=== PATIENT | male | born 1945 | race Caucasian/White ===

== ENCOUNTER → 2018-01-12 16:03 | Outpatient (CLI) | payer SELFPAY ==
--- NOTE | 2018-01-12 16:45 | RAD_ITS ---
STUDY: X-RAY - ORBITS REASON FOR EXAM: Male, 72 years old. This study is being performed as a clearance examination for exclusion of orbital metal, prior to the performance of an MRI examination. TECHNIQUE: 2 view(s) of the orbits were obtained. COMPARISON: None. FINDINGS: Normal bilateral orbits without a metallic orbital foreign body. Normal visualized facial bones. There is a leftward nasal spur. The visualized sinuses appear normal. The soft tissue structures are unremarkable. RAD/Orbits for Foreign Body IMPRESSION: No demonstrated metallic orbital foreign body. The patient is cleared for an MRI examination. Electronically Signed: Filomena Charles MD at 17:10 EDT Tel , Service support ,
--- NOTE | 2018-01-12 16:45 | MRI_ITS ---
STUDY: MRI LUMBAR SPINE WITHOUT CONTRAST REASON FOR EXAM: Male, 72 years old. Low back pain radiating to the lower extremities TECHNIQUE: Standardized fat and water weighted pulse sequences were obtained in the sagittal and axial planes. COMPARISON: None FINDINGS: T12-L1: Normal endplates. Normal disc height, hydration and morphology. Normal bilateral facet joints. Normal central canal and bilateral lateral recesses. Normal bilateral intervertebral neural foramina. Normal lumbar lordosis. There is no substantial scoliosis. Normal conus medullaris that terminates at T12-L1 L1-2: Normal endplates. Normal disc height, desiccation and minor annular bulge.. Normal bilateral facet joints. Normal central canal and bilateral lateral recesses. Normal bilateral intervertebral neural foramina. L2-3: Grade 1 retrolisthesis . Endplate spurring.. Normal disc height, desiccation and mild annular bulge with small left posterolateral/foraminal disc protrusion.. Normal bilateral facet joints. Normal central canal. Mild right lateral recess and neural foraminal encroachment with moderate narrowing on the left exaggerated by shortened pedicles.. L3-4: Endplate spurring. Normal disc height, desiccation and mild annular bulge with small left posterolateral/foraminal disc protrusion. Normal bilateral facet joints. Normal central canal. Moderate right lateral recess and neuroforaminal stenosis and slightly more pronounced narrowing on the left exaggerated by shortened pedicles. L4-5: Normal endplates. Normal disc height, desiccation and mild annular bulge.. Facet arthropathy and thickening of ligamenta flava. Normal central canal . Moderate bilateral recess and neural foraminal stenosis exaggerated by shortened pedicles. L5-S1: Normal endplates. Normal disc height, mild annular bulge in association with the right posterolateral/foraminal disc protrusion.. Bilateral facet arthropathy and thickening of ligamenta flava.. Mild narrowing of central canal. Moderate left lateral recess and neural foraminal stenosis with severe narrowing on the right both of which are exaggerated by shortened pedicles Normal visualized sacral ala. Normal visualized paraspinous soft tissue structures. MRI/Spine Lumbar (Routine) IMPRESSION: Spondylosis and multilevel disc degeneration. Multilevel spinal stenosis secondary to disc disease with bony hypertrophy exaggerated by shortened pedicles Findings as above Electronically Signed: Juliano Brewster MD at 23:35 EDT , Service support ,
== END ==
PROVIDERS: Family Provider Family Medicine; PCP Family Medicine; Visit Provider Family Medicine
DX: M47.896 Other spondylosis, lumbar region (principal); M48.061 Spinal stenosis, lumbar region without neurogenic claudication; M51.36 Other intervertebral disc degeneration, lumbar region
CPT/HCPCS: 70030; 72148

== ENCOUNTER 2018-07-28 09:28 | Day surgery (SDC) | payer SELFPAY ==
[2018-07-21 13:51] VITALS: BP 121/73; PULSE 63; RESP 17; TEMP 36.6; O2SAT 97; BMI 27.3
[2018-07-21 14:41] LABS: Hematocrit 42.8 % (40-54); Hemoglobin 14.9 g/dl (13.0-16.5); Mean Corp Hgb Conc 34.8 g/gl (32-36); Mean Corpuscular Hgb 31.7 pg (27.0-32.0); Mean Corpuscular Volume 91.1 fL (80-94); Mean Platelet Vol. 10.4 fl (6.2-12.0); Platelet Count 241 K/mm3 (150-450); RBC Distribution Width CV 13.7 % (11.6-14.6); RBC Distribution Width SD 44.9 fl (35.1-43.9); White Blood Count 5.8 K/mm3 (4.4-11.0)
[2018-07-21 14:42] LABS: Scan Indicated on CBC? Y/N NO
[2018-07-21 15:07] LABS: Anion Gap 3 (5-15); BUN 17 mg/dL (7-18); BUN/Creat Ratio 19.4 RATIO (10-20); Calcium,Total 8.7 mg/dL (8.5-10.1); Chloride 106 mmol/L (98-107); Creatinine, Serum 0.88 mg/dL (0.70-1.30); EST Glomerular Filtration Rate 91 mL/min (>60); Est Glom Filt Rate - Afr Amer 110 mL/min (>60); Estimated Creatinine Clearance 72.33 ml/min; Glucose 122 mg/dL (74-106); Potassium 3.5 mmol/L (3.5-5.1); Sodium Level 139 mmol/L (136-145)
[2018-07-28] VITALS (12 sets, daily range): BP systolic 119–161; BP diastolic 61–92; PULSE 46–57; RESP 14–16; TEMP 36.2–37.3; O2SAT 92–99; BMI 27.3
--- NOTE | 2018-07-28 | PROS_PTH ---
PATIENT: DARRELL HERNANDEZ LOC: [facility] U#:[id number] AGE/SX: 73/M ROOM: RE07/28/[address]: Dr. Benny King MD : 1945 BED: DIS: 07/29/2018 SPEC #: [id number] RECD: 07/28/18 15:12 STATUS: EHSAN CRISTOBAL #: [id number] TELMA: 07/28/18 00:[address]: Benny King DEPT: SURGICAL PATHOLOGY RECD BY: Nicho Fletcher ENTERED: 07/28/18 15:13 SP TYPE: TURP OTHR DR: Dr. Aly Lewis, DO Tissues: Prostate, NOS Procedures: Surgery Specimen Level IV HEADER OPERATION: Cysto, TUR, prostate, Olympus PRE-OP DIAGNOSIS: Benign prostatic hyperplasia with lower urinary tract symptoms TISSUE SUBMITTED: Prostate tissue MICROSCOPIC DIAGNOSIS Prostate, transurethral resection: Benign nodular hyperplasia, glandular and stromal types. Mild chronic inflammation. AM:joey 07/29/18 MICROSCOPIC DESCRIPTION Slides are reviewed. GROSS DESCRIPTION Received is one container labeled with the patient's name and designated prostate tissue. The specimen consists of multiple irregular fragments of pink-mcdonald, rubbery, soft tissue that in aggregate weigh 21.2 gm and measure in aggregate 7 x 7 x 3 cm. Double End Trimmer tissue is submitted in 12 cassettes. / SJ:joey 07/28/18 TC:3 CPT: 82010
--- NOTE | 2018-07-28 12:11 | DCINST_ITS ---
Discharge Diet: Light diet - advance as tolerated, Soft diet Discharge Activity: Return to Normal Activity Lifting Restrictions: no lifting > 10 lbs for a week Call your doctor if your incision/area has: Continuous Slow Oozing, Sudden Increased Bleeding, Increased Pain/ Swelling, Increased Redness, Foul Smelling Discharge, Swelling at the incision site Instructions: Transurethral Resection of the Prostate (TURP): Home Recovery Allergies/Adverse Reactions: Allergies No Known Allergies Allergy (Verified 07/21/18 13:41) Medications to take at Discharge Atenolol [Tenormin (beta tiffani)] 25 mg PO BID 08/11/17 amlodipine 5 mg tablet 5 mg PO DINNER tab 09/03/17 Ciprofloxacin [Cipro] 500 mg PO BID #14 tab 07/28/18 The following prescriptions were given: Ciprofloxacin [Cipro] 500 mg PO BID #14 tab Primary Care Physician: Aly Lewis DO [Primary Care Provider] - Test Results: Test results from this visit will be discussed in further detail at your follow- up appointment, if applicable. Please Follow Up With: Benny King MD When: in 2 weeks, please call to make an appointment. Proposed Discharge Date: 07/29/18
[2018-07-28] MEDS: Cefazolin 2 GM in 0.9% Normal Saline 100 ML IV (12:18)
--- NOTE | 2018-07-28 13:24 | PCM.OPRPT ---
Report of Operation Date of Procedure: 07/28/18 Pre-Operative Diagnosis: BPH with obstruction Post-Operative Diagnosis: Same Surgery/Procedure Performed:: Transurethral resection of the prostate Description of Surgical Findings:: 73-year-old male taken back to the operating room at the smooth induction of anesthesia was placed supine on the table in dorsal lithotomy position, penis and testicles are prepped and draped in usual sterile fashion went into the bladder with a 26 Bengali continuous flow resectoscope, I inspected the prostate he had bilateral hypertrophy no real median lobe identified the left and right ureteral orifice the bladder was trabeculated and thickened no tumors or stones seen within the bladder I then switched over to the resectoscope resected the right lobe of the prostate resect the left lobe the prostate resected resected down to the apical tissue very carefully identified the sphincter make sure the sphincter was intact and which was we did then a flow test had a nice wide open flow after the resection all the chips were Ellik out we obtain hemostasis and patient anesthetic was reversed taken back to PACU good condition and placed a 22 Bengali Mederos catheter into the bladder continues bladder irrigation. Type of Anesthesia:: General Drains: 22fr [address] way
[2018-07-28] MEDS: 0.9% Normal Saline 1,000 ML 75 ML IV (14:40)
[2018-07-28] MEDS: Docusate Sodium 100 MG Capsule PO (21:30)
--- NOTE | 2018-07-28 22:22 | NURSING ---
Sats were around 88-89% so placed on 2L and sats are now running 95%.
[2018-07-29] MEDS: 0.9% Normal Saline 1,000 ML 75 ML IV (02:30)
[2018-07-29 02:45] VITALS: BP 146/76; PULSE 52; RESP 16; TEMP 36.9; O2SAT 94
--- NOTE | 2018-07-29 07:25 | PCM.PROGNOTE ---
Subjective: doing well afte turp - Physical Exam General: Alert, Oriented x3, Cooperative HEENT: Atraumatic, PERRLA, EOMI, Normocephalic Neck: Supple, No JVD, Negative Carotid Bruits Lungs: Clear to auscultation, Normal air movement Cardiovascular: Regular rate, No murmurs Abdomen: Bowel Sounds Present, Soft, Non Tender Extremities: No edema, Capillary Refill Less than 3 Seconds Skin: No rashes, No breakdown Musculoskeletal: No Tenderness to Palpation of Joints or Extremities Neurological: Cranial nerves II-XII grossly intact Psych/Mental Status: Normal Affect, Appropriate Vital Signs Temp Pulse Resp BP Pulse Ox 98.5 F 52 L 16 146/76 H 94 07/29/18 02:45 07/29/18 02:45 07/29/18 02:45 07/29/18 02:45 07/29/18 02:45 Oxygen Flow Rate (L/min) 2 Oxygen Delivery Method Room Air Weight: 81.5 kg Body Mass Index (BMI) 27.3 Intake and Output for Last 24 Hours 07/27/18 07/28/18 07/29/18 23:59 23:59 23:59 Intake Total 2574 / 2574 1788 / 1788 Output Total 1620 / 1620 4800 / 4800 Balance 954 / 954 -3012 / -3012 Medical Necessity - Tobacco Use Smoking Status: Never smoker Assessment/Plan All Active Problems (Last Reviewed 09/03/17 @ 10:30 by Ria Paredes) Dizziness (Acute) d/c miller, 30cc balloon d/c home after voids
[2018-07-29 07:28] VITALS: BP 118/73; PULSE 58; RESP 18; TEMP 36.1; O2SAT 92
[2018-07-29 08:35] VITALS: BP 131/66; PULSE 56; RESP 18; TEMP 36.8; O2SAT 96
[2018-07-29] MEDS: Docusate Sodium 100 MG Capsule PO (08:36)
[2018-07-29 12:20] VITALS: BP 128/65; PULSE 62; RESP 18; TEMP 36.5; O2SAT 94
== END 2018-07-29 12:55 | disposition home or self-care (01) ==
LOC: SDC 09:29 → AC 09:33 → MS3 07-29 10:41
PROVIDERS: Anesthesiology; Family Provider Family Medicine; PCP Family Medicine; Referring Provider Urology; Visit Provider Urology
PROC: (CPT 52601; principal; 2018-07-28 11:45)
DX: N40.1 Benign prostatic hyperplasia with lower urinary tract symptoms (principal); N13.8 Other obstructive and reflux uropathy; R35.0 Frequency of micturition; R35.1 Nocturia; I10 Essential (primary) hypertension; Z85.828 Personal history of other malignant neoplasm of skin; Z79.899 Other long term (current) drug therapy
CPT/HCPCS: 00914; 52601; 80048; 85027; 88305; 93005; J7030; J7120

== ENCOUNTER 2020-07-26 23:49 | Inpatient (IN) | payer OTHER, SELFPAY ==
--- NOTE | 2020-07-26 00:30 | RAD_ITS ---
HISTORY: PT WITH SOB, FEVER, COUGH STARTING YESTERDAY. EXAM: XR Chest 1 View: COMPARISON: None FINDINGS: # of images incl. paperwork: 1 Bilateral airspace disease is present. It appears be slightly greater on the left and right. Calcific plaque within the aortic arch. Heart is not enlarged. No acute osseous pathology perceived. Pulmonary vascularity is indistinct. No effusions. RAD/Chest 1 View (Portable) IMPRESSION: Indistinct diffuse bilateral airspace disease possibly representing pneumonia, pneumonitis, or less likely alveolar edema.. at 0119 Reported and signed by: Rene Mcleod MD Electronically Signed: Rene Mcleod MD at 1:18 EDT Tel , Service support ,
[2020-07-26 23:50] VITALS: BP 153/89; PULSE 81; RESP 24; TEMP 37.8; O2SAT 86; BMI 27.6
--- NOTE | 2020-07-26 23:55 | EKG12_ITS ---
Test Reason : DYSRHYTHMIA Blood Pressure : / mmHG Vent. Rate : 080 BPM Atrial Rate : 080 BPM P-R Int : 160 ms QRS Dur : 100 ms QT Int : 382 ms P-R-T Axes : 058 056 046 degrees QTc Int : 440 ms Normal sinus rhythm with sinus arrhythmia Normal ECG Confirmed by DREA CALVERT, CAMILLA ([id number]), editor managing newspaper JONAH MCCRACKEN ([id number]) on 07/27/2020 9:33:13 AM Referred By: Confirmed By:CAMILLA SHEPARD MD
--- NOTE | 2020-07-26 23:57 | ED.DCSUM_ITS ---
History of Present Illness Chief Complaint: Shortness of Breath Informant: Patient, Web Designer Narrative: 75-year-old [facility] male presents with fever and shortness of breath. He tells me that last Thursday he developed sore throat runny nose and earaches. He was treated by an antibiotic through his doctor. He states it never really made him feel better. Yesterday he developed some shortness of breath and cough. He notes some sputum with cough production. EMS was called tonight at a concern for dehydration and he was noted to be febrile at 1-1.7 and hypoxic 82% on room air at home. He denies any diarrhea. No rashes. - Past Medical History (1) Hyperlipidemia Status: Chronic (2) Hypertension Status: Chronic Past Medical History - Allergies and Home Meds Allergies/Adverse Reactions: Allergies No Known Allergies Allergy (Verified 07/26/20 23:49) Primary Care Physician: Aly Lewis DO [Primary Care Provider] - Prior records reviewed: Yes Surgical History: noncontributory Lives: With Family Smoking Status: Never smoker Drugs: None Review of Systems General: Reports: Chills, Fever, Malaise, Sweats Eyes: Denies: Visual changes - bilaterally, Diplopia ENT: Reports: Bilateral ear pain, Rhinorrhea, Sore throat Cardiovascular: Denies: Chest pain, Palpitations Respiratory: Reports: Dyspnea, Cough, Sputum, Dyspnea on exertion Gastrointestinal: Denies: Abdominal pain, Nausea, Vomiting, Diarrhea, Melena, Hematochezia Genitourinary: Denies: Dysuria, Hematuria, Frequency Musculoskeletal: Reports: Myalgias. Denies: Back pain, Extremity Pain Skin: Denies: Rash, Wounds Neurological: Reports: Headache. Denies: Weakness, Numbness Physical Exam Inital Vital Signs reviewed: Yes General: Well nourished, Well developed, No Acute Distress, - - Patient appears globally weak but not in any distress. He is able to speak in full sentences. Head: Normocephalic, Atraumatic Eyes: Perrl, EOMI ENT: Moist mucous membranes, No rhinorrhea Neck: Supple, Nontender Cardiovascular: Regular rate, Regular rhythm, No murmurs Respiratory: No distress, CTA bilaterally, Chest nontender Abdomen: Soft, Nontender, Nondistended, Normal bowel sounds Back: Nontender, Normal Inspection Extremities: Nontender, No edema Skin: Normal color, No rash Neurological: Alert, Oriented x3, Cranial nerves II-XII grossly intact, Normal Strength, Normal Sensation Psychological: Normal affect, Normal Mood Diagnostic/Tx/Re-eval Laboratory Last Values WBC 8.2 K/mm3 (4.4-11.0) 07/27/20 00:07 RBC 4.86 M/mm3 (4.6-6.2) 07/27/20 00:07 Hgb 14.4 g/dL (13.0-16.5) 07/27/20 00:07 Hct 43.2 % (40-54) 07/27/20 00:07 MCV 88.9 fL (80-94) 07/27/20 00:07 MCH 29.6 pg (27.0-32.0) 07/27/20 00:07 MCHC 33.3 g/dL (32-36) 07/27/20 00:07 RDW Std Deviation 41.2 fl (35.1-43.9) 07/27/20 00:07 RDW Coeff of Blas 12.7 % (11.6-14.6) 07/27/20 00:07 Plt Count 240 K/mm3 (150-450) 07/27/20 00:07 MPV 10.7 fl (6.2-12.0) 07/27/20 00:07 Immature Gran % (Auto) 0.600 % (0.0-0.9) 07/27/20 00:07 Neut % (Auto) 87.3 % (47-70) H 07/27/20 00:07 Lymph % (Auto) 7.5 % (19-41) L 07/27/20 00:07 [place] % (Auto) 4.5 % (0-10) 07/27/20 00:07 Eos % (Auto) 0.0 % (0-5) 07/27/20 00:07 Baso % (Auto) 0.1 % (0-1) 07/27/20 00:07 Absolute Neuts (auto) 7.1 X10^3/uL (2.0-7.7) 07/27/20 00:07 Absolute Lymphs (auto) 0.61 X10^3/uL (0.83-4.51) L 07/27/20 00:07 Nucleated RBC % 0 % (0-5) 07/27/20 00:07 Fibrinogen 701 mg/dl (203-444) H 07/27/20 00:07 D-Dimer Quant (PE/DVT) 1.28 FEU/ug/m (0.27-0.49) H* 07/27/20 00:07 Sodium 132 mmol/L (136-145) L 07/27/20 00:07 Potassium 3.2 mmol/L (3.5-5.1) L 07/27/20 00:07 Chloride 97 mmol/L (98-107) L 07/27/20 00:07 Carbon Dioxide 29.0 mmol/L (21.0-32.0) 07/27/20 00:07 Anion Gap 6 (5-15) 07/27/20 00:07 BUN 14 mg/dL (7-18) 07/27/20 00:07 Creatinine 0.98 mg/dL (0.70-1.30) 07/27/20 00:07 Estim Creat Clear Calc 63.01 ml/min 07/27/20 00:07 Est GFR (MDRD) Af Amer 96 mL/min (>60) 07/27/20 00:07 Est GFR (MDRD) Non-Af 79 mL/min (>60) 07/27/20 00:07 BUN/Creatinine Ratio 14.3 RATIO (10-20) 07/27/20 00:07 Glucose 221 mg/dL (74-106) H 07/27/20 00:07 Lactic Acid 1.6 mmol/L (0.4-1.9) 07/27/20 00:07 Calcium 8.5 mg/dL (8.5-10.1) 07/27/20 00:07 Total Bilirubin 0.70 mg/dL (0.20-1.00) 07/27/20 00:07 AST 44 U/L (15-37) H 07/27/20 00:07 ALT 32 U/L (16-61) 07/27/20 00:07 Alkaline Phosphatase 114 U/L (45-117) 07/27/20 00:07 Lactate Dehydrogenase 291 U/L (87-241) H 07/27/20 00:07 Total Creatine Kinase 107 U/L (39-308) 07/27/20 00:07 Troponin I < 0.015 ng/mL (<0.045) 07/27/20 00:07 C-React Prot Ext Range 148.00 mg/L (0.0-3.0) H 07/27/20 00:07 Total Protein 7.9 g/dL (6.4-8.2) 07/27/20 00:07 Albumin 2.9 g/dL (3.2-5.0) L 07/27/20 00:07 Globulin 5.0 g/dL (2.2-4.2) H 07/27/20 00:07 Albumin/Globulin Ratio 0.6 RATIO (0.9-2.4) L 07/27/20 00:07 Procalcitonin 0.11 ng/mL (0.00-0.09) H 07/27/20 00:15 COVID-19 (MYLENE) Detected (Not Detect) 07/27/20 00:04 Clinical Impression(s) from Imaging Studies Chest X-Ray 07/26/20 00:30 IMPRESSION: Indistinct diffuse bilateral airspace disease possibly representing pneumonia, pneumonitis, or less likely alveolar edema.. at 0119 Reported and signed by: Rene Mcleod MD Electronically Signed: Rene Mcleod MD at 1:18 EDT Tel , Service support , Chest CTA 07/27/20 01:11 IMPRESSION: No pulmonary embolism, aortic aneurysm, or aortic dissection. Multi lobar airspace disease with hilar and mediastinal adenopathy consistent with pneumonia, either viral or bacterial. Individualized dose optimization techniques were used for this CT. at 0303 Reported and signed by: Rene Mcleod MD Electronically Signed: Rene Mcleod MD at 3:02 EDT Tel , Service support , - EKG Initial EKG Interpretation: Sinus Rhythm - EKG demonstrates a sinus rhythm with sinus arrhythmia at a rate of 80. There is no concerning features of ACS - Medical Decision Making The patient would occasionally fall asleep. While sleeping he would often have desaturations to 86-87% despite oxygen. This would have these just possible sleep apnea. Patient received Motrin for fever and IV hydration. Basic labs were obtained and the patient is Covid positive. Elevated D-dimer resulted in a CTA of the chest been ordered which demonstrates a [id number]-spoa pattern and no pulmonary embolism. As the patient is requiring supplemental oxygen to keep his saturations greater than 88% while awake the plan will be admission into the hospital for further care. ED Disposition - Plan for ED Patient: Disposition: Acute Care Hospital [facility] Diagnosis: Pneumonia due to COVID-19 virus, Hypoxemia, Diabetes Referrals: Aly Lewis DO [Primary Care Provider] -
[2020-07-26 23:58] VITALS: O2SAT 93
[2020-07-26 23:59] VITALS: O2SAT 93
[2020-07-27] VITALS (16 sets, daily range): BP systolic 126–149; BP diastolic 70–86; PULSE 60–84; RESP 16–23; TEMP 36.1–37.8; O2SAT 88–95; BMI 27.1; BMI 27.2
[2020-07-27] MEDS: 0.9% Normal Saline 1,000 ML 999 ML IV (00:08)
[2020-07-27] MEDS: Ibuprofen 600 MG Tablet PO (00:08)
[2020-07-27 00:24] LABS: Absolute Lymphocyte Count 0.61 X10^3/uL (0.83-4.51); Absolute Neutrophil Count 7.1 X10^3/uL (2.0-7.7); Basophil# 0.01 X10^3/uL; Basophil% 0.1 % (0-1); Hematocrit 43.2 % (40-54); Hemoglobin 14.4 g/dL (13.0-16.5); Lymphocyte # 0.61 X10^3/ul (4.0); Lymphocyte % 7.5 % (19-41); Mean Corp Hgb Conc 33.3 g/dL (32-36); Mean Corpuscular Hgb 29.6 pg (27.0-32.0); Mean Corpuscular Volume 88.9 fL (80-94); Mean Platelet Vol. 10.7 fl (6.2-12.0); Monocyte# 0.37 X10^3/uL; Monocyte% 4.5 % (0-10); NRBC Flagged by Analyzer 0 % (0-5); Neutrophil # 7.11 X10^3/uL (2.7-7.7); Neutrophil % 87.3 % (47-70); Platelet Count 240 K/mm3 (150-450); RBC Distribution Width CV 12.7 % (11.6-14.6); RBC Distribution Width SD 41.2 fl (35.1-43.9); Red Blood Count 4.86 M/mm3 (4.6-6.2); White Blood Count 8.2 K/mm3 (4.4-11.0)
[2020-07-27 00:31] LABS: Fibrinogen 701 mg/dl (203-444)
[2020-07-27 00:38] LABS: D-Dimer Quantitative (DVT/PE) 1.28 FEU/ug/m (0.27-0.49)
[2020-07-27 00:43] LABS: Lactic Acid 1.6 mmol/L (0.4-1.9)
--- NOTE | 2020-07-27 01:11 | CT_ITS ---
HISTORY: COUGH,SOB AND FEVER X 10 DAYS,ELEVATED [id number] TECHNIQUE: Helically acquired images were obtained of the chest following the intravenous administration of 100 ML of Isovue-370 Iodinated contrast. as per pulmonary angiogram protocol with 2D , without 3-D MIP reconstructions. A radiation dose optimization technique was used for this scan. COMPARISON: The chest x-ray from 1-1/2 hours earlier FINDINGS: # of images incl. paperwork: [id number] Chronic interstitial fibrotic lung disease is present with some additional airspace disease within all 5 lobes. Dependent atelectasis.. Tiny bilateral pleural Within the thoracic spinebony alignment is normal. Vertebral body height is normal. Facets are well aligned. No rib lesions are perceived. Heart is enlarged. Some calcified coronary artery disease is present Thoracic aorta is elongated with atherosclerotic plaque. No aneurysms, stenoses, dissections, nor occlusions. Mediastinal adenopathy and hilar adenopathy are present No pulmonary emboli. There may be some hepatomegaly and hepatic steatosis. CT/CTA Chest W/WO Contrast IMPRESSION: No pulmonary embolism, aortic aneurysm, or aortic dissection. Multi lobar airspace disease with hilar and mediastinal adenopathy consistent with pneumonia, either viral or bacterial. Individualized dose optimization techniques were used for this CT. at 0303 Reported and signed by: Rene Mcleod MD Electronically Signed: Rene Mcleod MD at 3:02 EDT Tel , Service support ,
[2020-07-27] MEDS: 0.9% Normal Saline 1,000 ML 125 ML IV (01:28)
[2020-07-27 01:41] LABS: Procalcitonin 0.11 ng/mL (0.00-0.09)
[2020-07-27 02:00] LABS: ALB/GLOB Ratio 0.6 RATIO (0.9-2.4); AST(SGOT) 44 U/L (15-37); Alanine Aminotransfer ALT/SGPT 32 U/L (16-61); Albumin, Serum 2.9 g/dL (3.2-5.0); Alkaline Phosphatase 114 U/L (45-117); Anion Gap 6 (5-15); BUN 14 mg/dL (7-18); BUN/Creat Ratio 14.3 RATIO (10-20); CPK Total, Creatine Kinase 107 U/L (39-308); Calcium,Total 8.5 mg/dL (8.5-10.1); Chloride 97 mmol/L (98-107); Creatinine, Serum 0.98 mg/dL (0.70-1.30); EST Glomerular Filtration Rate 79 mL/min (>60); Est Glom Filt Rate - Afr Amer 96 mL/min (>60); Estimated Creatinine Clearance 63.01 ml/min; Glucose 221 mg/dL (74-106); LDH 291 U/L (87-241); Potassium 3.2 mmol/L (3.5-5.1); Protein, Total 7.9 g/dL (6.4-8.2); Sodium Level 132 mmol/L (136-145)
--- NOTE | 2020-07-27 02:18 | ED.RN ---
PT SATTING 88% ON 5L NC. THIS RN DONNED PPE AND ENTERED PT ROOM, PT SLEEPING AND LAYING FLAT IN BED. PT AWAKENED BY THIS RN AND SAT UP IN BED. PT SPO2 INCREASED TO 93% N 5L NC. PT REPORTS HE IS UNSURE OF SLEEP APNEA. DR. AKERS INFORMED. WILL CONTINUE TO MONITOR.
--- NOTE | 2020-07-27 03:07 | HP.PCM_ITS ---
Problem List (1) Pneumonia due to COVID-19 virus Status: Acute (2) Hypoxemia Status: Acute (3) Diabetes Status: Chronic (4) Hyperlipidemia Status: Chronic Qualifiers: Hyperlipidemia type: unspecified Qualified Code(s): E78.5 - Hyperlipidemia, unspecified; E78.5 - Hyperlipidemia, unspecified; E78.5 - Hyperlipidemia, unspecified (5) Hypertension Status: Chronic Qualifiers: Hypertension type: essential hypertension Qualified Code(s): I10 - Essenti al (primary) hypertension History of Present Illness Date of Admission: 07/27/20 Chief Complaint: Malaise The patient is a 75 year old M with a significant history of hypertension and diabetes mellitus who presents emergency department with a 10-day history of persistent malaise. His symptoms started about a week ago with rhinorrhea; sore throat; and bilateral ear aches last week. He was given antibiotics. Reports chest tightness but denies consuelo shortness of breath. He has intermittent cough which at times is productive for clear sputum. He reports a fever with highest temperature of about 99.8 and chills. When paramedics reached him His oxygen saturation was about 82% on room air. At emergency department his oxygen saturation was 86%. His temperature at the emergency department was 100.0 Fahrenheit. Past Medical History Past Medical History (Chronic Problems): Chronic Problems (Last Reviewed 07/27/20 @ 04:[address] Antonio Nicolas MD) Diabetes (Chronic) Hyperlipidemia (Chronic) Hypertension (Chronic) Medical History: Medical History (Last Reviewed 07/27/20 @ 04:[address] Antonio Nicolas MD) Hyperlipidemia (Chronic) E78.5 Dizziness (Inactive) R42 Hypertension (Chronic) I10 Allergies No Known Allergies Allergy (Verified 07/26/20 23:49) Home Medications: Ambulatory Orders Medication Instructions Recorded Atenolol [Tenormin (beta tiffani)] 25 mg PO BID 08/11/17 amlodipine 5 mg tablet 5 mg PO DAILY tab 09/03/17 Surgical History: herniorrhaphy, - - Prostate surgery; and back surgery. Lives: With Family Smoking Status: Never smoker Drugs: None - *Family History Maternal History Items: - - His mother at the age of 92. Patient thinks that his mother from old age. Paternal History Items: - - His mother at the age of 87. Patient thinks that his father from old age. Review of Systems Constitutional: Reports: Chills, Fever, Malaise, Weakness, Fatigue. Denies: We ight Change HEENT: Denies: Head Aches, Sinus Congestion, Sinus Drainage Cardiovascular: Reports: Chest Tightness. Denies: Chest Pain, Palpitations Respiratory: Reports: Cough, Sputum production Gastrointestinal: Denies: Abdominal Pain, Nausea, Vomiting Genitourinary: Denies: Dysuria Musculoskeletal: Denies: Joint Pain, Joint Tenderness Skin: Denies: Rash, Wounds Neurological: Denies: Numbness, Tingling, Focal weakness Psychiatric: Denies: Anxiety, Depression, Homicidal Ideations, Suicidal Ideations Hematologic/ Lymphatic: Denies: Easy Bruising, Easy Bleeding VTE Information - Inpt Only VTE Present on Admission: No VTE Mechan Device Prophylaxis: None VTE Pharm Prophylaxis ordered?: Yes Patient Problems: Active and Suspected Problems (Last Reviewed 07/27/20 @ 04:[address] Antonio Nicolas MD) Pneumonia due to COVID-19 virus (Acute) Hypoxemia (Acute) - Physical Exam Vitals/I&O's: Vital Signs Temp Pulse Resp BP Pulse Ox 98.0 F 65 20 H 138/75 H 93 07/27/20 02:18 07/27/20 02:18 07/27/20 02:18 07/27/20 02:18 07/27/20 02:18 Oxygen Flow Rate (L/min) 5 Oxygen Delivery Method Nasal Cannula Weight: 82.6 kg Body Mass Index (BMI) 27.6 Intake and Output for Last 24 Hours 07/25/20 07/26/20 07/27/20 23:59 23:59 23:59 Intake Total 1000 / 1000 Balance 1000 / 1000 General: Alert, Oriented x3, Cooperative HEENT: Atraumatic, PERRLA, EOMI, Normocephalic Neck: Supple, No JVD, Negative Carotid Bruits Lungs: No rhonchi, No wheeze, Rales Cardiovascular: Regular rate, Normal S1, Normal S2, No murmurs Abdomen: Bowel Sounds Present, Soft, Non Tender Extremities: No edema, Capillary Refill Less than 3 Seconds Skin: No rashes, No breakdown Musculoskeletal: No Tenderness to Palpation of Joints or Extremities Neurological: Cranial nerves II-XII grossly intact Psych/Mental Status: Normal Affect, Appropriate Microbiology Past 72 Hours 07/27/20 00:04 Mucosa - Nose Respiratory Panel (PCR) - Final Laboratory Results 07/27/20 00:04: COVID-19 (MYLENE) Detected 07/27/20 00:07: WBC 8.2, RBC 4.86, Hgb 14.4, Hct 43.2, MCV 88.9, MCH 29.6, MCHC 33.3, RDW Std Deviation 41.2, RDW Coeff of Blas 12.7, Plt Count 240, MPV 10.7, Immature Gran % (Auto) 0.600, Neut % (Auto) 87.3 H, Lymph % (Auto) 7.5 L, [place] % (Auto) 4.5, Eos % (Auto) 0.0, Baso % (Auto) 0.1, Absolute Neuts (auto) 7.1, Absolute Lymphs (auto) 0.61 L, Nucleated RBC % 0 07/27/20 00:07: Fibrinogen 701 H, D-Dimer Quant (PE/DVT) 1.28 H* 07/27/20 00:07: Sodium 132 L, Potassium 3.2 L, Chloride 97 L, Carbon Dioxide 29.0, Anion Gap 6, BUN 14, Creatinine 0.98, Estim Creat Clear Calc 63.01, Est GFR (MDRD) Af Amer 96, Est GFR (MDRD) Non-Af 79, BUN/Creatinine Ratio 14.3, Glucose 221 H, Calcium 8.5, Total Bilirubin 0.70, AST 44 H, ALT 32, Alkaline Phosphatase 114, Lactate Dehydrogenase 291 H, Total Creatine Kinase 107, Troponin I < 0.015, C-React Prot Ext Range 148.00 H, Total Protein 7.9, Albumin 2.9 L, Globulin 5.0 H, Albumin/Globulin Ratio 0.6 L 07/27/20 00:07: Lactic Acid 1.6 07/27/20 00:15: Procalcitonin 0.11 H Current Medications Sodium Chloride () 1,000 mls @ 125 mls/hr IV .Q8H CODY Last Admin: 07/27/20 01:28 Dose: 125 mls/hr Documented by: Assessment/Plan All Active Problems (Last Reviewed 07/27/20 @ 04:[address] Antonio Nicolas MD) Pneumonia due to COVID-19 virus (Acute) Hypoxemia (Acute) Acute Hypoxemic respiratory insufficiency secondary to SARS COVID-19 pneumonia. Dimer was elevated at 1.28 Chest x-ray and Chest CTA interpreted by radiology as bilateral infiltrates. Actual chest x-ray and actual chest CTA was independently reviewed. I agree with radiologist interpretation. COVID-19 was positive. Fibrinogen elevated. Procalcitonin low. No need for antibiotics at this time. Discussed emergent department doctor to give Decadron 6 mg IV. Decadron 6 mg p.o. ordered for inpatient. Infectious disease consult and pulmonology consult. Received Motrin for fever at the ED. Tylenol prn for fever ordered Oxygen as needed Hypertension Blood pressure is elevated Amlodipine and atenolol continued. Trend blood pressure and adjust blood pressure medications. Diabetes mellitus Blood glucose elevated on presentation. With Decadron expect blood glucose to even go up higher. Accu-Chek QA CHS with correction scale insulin ordered. DVT prophylaxis Subcutaneous Lovenox Per Covid protocol. Inpatient E&M: 82222 Init Hosp L3
[2020-07-27] MEDS: dexAMETHasone 10 MG/ML Vial 6 MG IV (03:54)
--- NOTE | 2020-07-27 07:43 | PCM.PN.BLA ---
Progress Note Seen and examined. 75-year-old with past medical hypertension, type II DM who presented with 10-day history of malaise and cough. He was found to have acute COVID-19 infection/pneumonia. Vitals reviewed, on 5 L of oxygen. Physical exam: Patient appears to be comfortable, on 5 L Diminished entry on exam Labs reviewed K 3.2, replaced, will check mag Continue on Decadron STROKE Vital Signs/Narrative: Vital Signs Temp Pulse Resp BP Pulse Ox 07/27/20 05:06 63 07/27/20 04:26 97.5 F L 68 18 140/73 H 94
[2020-07-27] MEDS: Atenolol 25 MG Tablet PO ×2 (09:55→21:10)
[2020-07-27] MEDS: Enoxaparin 30 MG/0.3 ML Syringe SC ×2 (09:55→21:10)
--- NOTE | 2020-07-27 10:49 | CASEMGMT ---
BHAVNA FORD assessment: Phone interview with patient for initial transition planning/care coordination assessment as pt is in COVID precautions at this time. BHAVNA FORD introduced self and role at [facility], pt voices understanding and consents to assessment at this time. Pt is A/Ox4 at this time and answers all questions appropriately at this time. Pt is currently on 5liters nc with a sat of 93% at this time. Pt states had symptoms but 'not as bad.' Pt states his daughter has already been exposed to them both but has not showed any symptoms. Pt states no concerns with getting supplies once home and is aware will need to stay in quarantine. Pt states recent back surgery in 03/2020 and has been doing well since then. Care providers, pharmacy, and demographics verified at this time. Presentation: Pt W/ SOB, fever, cough starting yesterday. Pt satting 82% on ra per EMS Admitting dx: SARS COVID PCP: Joshua Specialists: Pt states no current specialists. Preferred Pharmacy: [facility] Insurance: [facility] [place] Prescription Benefit: Self pay Living Will/HPOA: Pt states does not have LW/HPOA and declines AD info at this time. LNOK: Candida Foley, ; Margie Foley, daughter Living Arrangements: Pt states lives with on main level of home and states no concerns at home at this time. Pt states is independent with ADL's. Transportation: Pt states uses drivers and states no transportation concerns at this time. Pt states will be able to find equipment driver at discharge. DME/HHC: Pt states has a walker at home but does not use. Pt states no preference for DME company if needs O2 at discharge and pt states has a generator at home. Green sheet left on chart for home oxygen, if pt qualifies at discharge. Pt states no need for any further therapy/resources at this time. Pt states no hx of HHC or SNF at this time. Pt states no concerns with going home at time of discharge. Pt states is retired. Pt states does not smoke cigarettes or drink ETOH. Pt states no further concerns/needs at this time. CM to follow for any further discharge planning/needs. Advised pt to ask for CM if any further questions/concerns/needs arise, voices understanding. Pt Goal: Home Plan[place] BHAVNA FORD
[2020-07-27] MEDS: Insulin Lispro 100 UNIT/ML INSULN.PEN SC ×3 (11:51→21:09)
[2020-07-27 12:01] LABS: Bedside Glucose 383 mg/dL (70-110)
--- NOTE | 2020-07-27 16:04 | CON.PCM_ITS ---
Problem List (1) Pneumonia due to COVID-19 virus Status: Acute (2) Hypoxemia Status: Acute (3) Diabetes Status: Chronic Qualifiers: Diabetes mellitus type: type 2 Diabetes mellitus moth exterminator insulin use: without snf use Diabetes mellitus complication status: without complication Qualified Code(s): E11.9 - Type 2 diabetes mellitus without complications (4) Hyperlipidemia Status: Chronic Qualifiers: Hyperlipidemia type: unspecified Qualified Code(s): E78.5 - Hyperlipidemia, unspecified; E78.5 - Hyperlipidemia, unspecified; E78.5 - Hyperlipidemia, unspecified (5) Dizziness Status: Inactive (6) Hypertension Status: Chronic Qualifiers: Hypertension type: essential hypertension Qualified Code(s): I10 - Essential (primary) hypertension Reason for Consult Date of Consultation: 07/27/20 Reason for Consultation: Hypoxia History of Present Illness: The patient is a 75 year old M, with past medical history listed below, who presented [facility] on 07/26/2020 with a 7 to 10-day history of progressive fever and shortness of breath. Patient reports that he was seen by his primary care physician last Thursday with a sore throat and runny nose. Patient has had similar type of problems previously, but was treated with an injection and antibiotics. Patient states that he was not given an injection and only antibiotics and continue to worsen. Patient called his PCP to ask for an injection and there was concern about COVID-19. Patient stated that he started to develop chest pain, so came to the ER to be evaluated. In the ER, patient appeared dehydrated and was noted to have a fever of 101.7 ?F. Patient was also noted to be hypoxic at 82% on room air. Patient denied any GI symptoms or rashes. Patient was noted to have a mild leukocytosis of 8.2, elevated fibrinogen at 701, D-dimer elevated at 1.28, normal renal function, but elevated CRP at 148, low procalcitonin at 0.11 and COVID-19 positive. Chest x-ray showed diffuse bilateral airspace disease and this was followed by CTA showing no acute PE, but multiple areas of groundglass opacities and associated adenopathy. After being admitted to the floor, patient states he feels subjectively im proved. Patient reports that he has never required supplemental oxygen previously. Patient denies any smoking history, but is never seen a lung doctor. 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 Patient has noted respiratory symptoms for over a week on close discussion. Patient does have a cough that is nonproductive at baseline, but has always associated this with allergies. Patient states that he still actively works and is never required an inhaler. Patient is unclear on his baseline cardiac function. Patient did state that he came to the ER because I felt like I was going to . Review of systems otherwise negative from a constitutional, HEENT, respiratory, cardiovascular, GI, genitourinary, musculoskeletal, skin, neurologic, psychiatric and hematologic system unless stated above. Past Medical History Past Medical History (Chronic Problems): Chronic Problems (Last Reviewed 07/27/20 @ 04:[address] Antonio Nicolas MD) Diabetes (Chronic) Hyperlipidemia (Chronic) Hypertension (Chronic) Medical History: Medical History (Last Reviewed 07/27/20 @ 04:[address] Antonio Nicolas MD) Hyperlipidemia (Chronic) E78.5 Dizziness (Inactive) R42 Hypertension (Chronic) I10 Allergies No Known Allergies Allergy (Verified 07/27/20 04:16) Home Medications: Ambulatory Orders Medication Instructions Recorded Atenolol [Tenormin (beta tiffani)] 25 mg PO BID 08/11/17 amlodipine 5 mg tablet 5 mg PO DAILY tab 09/03/17 Surgical History: herniorrhaphy, - - Prostate surgery; and back surgery. Lives: With Family Smoking Status: Never smoker Drugs: None - *Family History Maternal History Items: - - His mother at the age of 92. Patient thinks that his mother from old age. Paternal History Items: - - His mother at the age of 87. Patient thinks that his father from old age. Review of Systems Comment: See HPI Patient Problems: Active and Suspected Problems (Last Reviewed 07/27/20 @ 04:[address] Antonio Nicolas MD) Pneumonia due to COVID-19 virus (Acute) Hypoxemia (Acute) Objective: Imaging was personally reviewed. Agree with formal interpretation. No PEs are noted. Patient does have significant mediastinal lymphadenopathy. Of note, patient does have what might be interstitial fibrosis underlying. - Physical Exam Vitals/I&O's: Vital Signs Temp Pulse Resp BP Pulse Ox 36.3 C L 60 16 129/70 H 92 07/27/20 15:45 10/30/20 15:45 07/27/20 15:45 07/27/20 15:45 07/27/20 15:45 Oxygen Flow Rate (L/min) 5 Oxygen Delivery Method Nasal Cannula Weight: 81 kg Body Mass Index (BMI) 27.1 Intake and Output for Last 24 Hours 07/25/20 07/26/20 07/27/20 23:59 23:59 23:59 Intake Total 1817.08 / 1817.08 Output Total 320 / 320 Balance 1497.08 / 1497.08 General: Alert, Oriented x3, Cooperative, No apparent distress, Well developed, Well nourished, - - Appears younger than stated age. No conversational dyspnea. HEENT: Atraumatic, PERRLA, EOMI, Normocephalic, - - No scleral icterus or injection noted Oral: Moist Mucosa, No Gingival or Mucosal Lesions/ Ulcerations Neck: Supple, No JVD, No Nodes, Trachea Midline Lungs: Normal air movement, Diminished, Rales - Right base Cardiovascular: Regular rate, Regular Rhythm, Normal S1, Normal S2, No murmurs, No rub noted, No Gallop Abdomen: Bowel Sounds Present, Soft, Non Tender, Non-Distended Extremities: No clubbing, No cyanosis, No edema, Capillary Refill Less than 3 Seconds Skin: No rashes, No breakdown Musculoskeletal: No Tenderness to Palpation of Joints or Extremities Lymphatic: No Cervical, Supraclavicular, or Inguinal Adenopathy Neurological: Cranial nerves II-XII grossly intact, Neuro grossly intact, Motor Exam 5/5 strength throughout Psych/Mental Status: Alert and oriented to time, place, person, mood and affect Microbiology Past 72 Hours 07/27/20 00:04 Mucosa - Nose Respiratory Panel (PCR) - Final Laboratory Results 07/27/20 00:04: COVID-19 (MYLENE) Detected 07/27/20 00:07: WBC 8.2, RBC 4.86, Hgb 14.4, Hct 43.2, MCV 88.9, MCH 29.6, MCHC 33.3, RDW Std Deviation 41.2, RDW Coeff of Blas 12.7, Plt Count 240, MPV 10.7, Immature Gran % (Auto) 0.600, Neut % (Auto) 87.3 H, Lymph % (Auto) 7.5 L, [place] % (Auto) 4.5, Eos % (Auto) 0.0, Baso % (Auto) 0.1, Absolute Neuts (auto) 7.1, Absolute Lymphs (auto) 0.61 L, Nucleated RBC % 0 07/27/20 00:07: Fibrinogen 701 H, D-Dimer Quant (PE/DVT) 1.28 H* 07/27/20 00:07: Sodium 132 L, Potassium 3.2 L, Chloride 97 L, Carbon Dioxide 29.0, Anion Gap 6, BUN 14, Creatinine 0.98, Estim Creat Clear Calc 63.01, Est GFR (MDRD) Af Amer 96, Est GFR (MDRD) Non-Af 79, BUN/Creatinine Ratio 14.3, Glucose 221 H, Calcium 8.5, Total Bilirubin 0.70, AST 44 H, ALT 32, Alkaline Phosphatase 114, Lactate Dehydrogenase 291 H, Total Creatine Kinase 107, Troponin I < 0.015, C-React Prot Ext Range 148.00 H, Total Protein 7.9, Albumin 2.9 L, Globulin 5.0 H, Albumin/Globulin Ratio 0.6 L 07/27/20 00:07: Lactic Acid 1.6 07/27/20 00:15: Procalcitonin 0.11 H 07/27/20 11:50: POC Glucose 383 H Current Medications Acetaminophen (Acetaminophen 325 Mg Tablet) 650 mg PO Q6H PRN PRN PRN Reason: Pain Score 1-10/Temp > 100.7 F Amlodipine Besylate (Amlodipine 5 Mg Tablet) 5 mg PO DINNER [facility] Atenolol (Atenolol 25 Mg Tablet) 25 mg PO BID [facility] Last Admin: 07/27/20 09:55 Dose: 25 mg Documented by: Dexamethasone (Dexamethasone 4 Mg Tablet) 6 mg PO DAILY@0800 [facility] Dextrose (Dextrose 50%-Water 25 Gm/50 Ml Disp.Syrin) 0 gm IV X1 PRN; Protocol PRN Reason: Hypoglycemia Enoxaparin Sodium (Enoxaparin 30 Mg/0.3 Ml Syringe) 30 mg SC BID [facility] Last Admin: 07/27/20 09:55 Dose: 30 mg Documented by: Glucagon (Glucagon 1 Mg/Ml Syringe) 1 mg IM .X1 PRN PRN Reason: Hypoglycemia Sodium Chloride () 250 mls @ 15 mls/hr IV .[id number] PRN PRN Reason: Saline Flush Sodium Chloride () 250 mls @ 15 mls/hr IV .[id number] PRN PRN Reason: Additional IVPB Infusion Insulin Glargine (Insulin Glargine 100 Units/Ml Pen) 10 units SC QHS CODY Insulin Human Lispro (Insulin Lispro 100 Unit/Ml Insuln.Pen) 0 unit SC 4X/DAYCM CODY; Protocol Last Admin: 07/27/20 15:55 Dose: 6 units Documented by: Melatonin (Melatonin 3 Mg Tablet) 3 mg PO QHS PRN PRN PRN Reason: INSOMNIA Ondansetron HCl (Ondansetron 4 Mg/2 Ml Vial) 4 mg IV Q8H PRN PRN PRN Reason: NAUSEA/VOMITING Sodium Chloride (0.9% Saline Lock 10 Ml Syringe) 10 - 40 ml IV UD PRN PRN Reason: SALINE FLUSH Clinical Impression(s) from Imaging Studies Chest X-Ray 07/26/20 00:30 IMPRESSION: Indistinct diffuse bilateral airspace disease possibly representing pneumonia, pneumonitis, or less likely alveolar edema.. at 0119 Reported and signed by: Rene Mcleod MD Electronically Signed: Rene Mcleod MD at 1:18 EDT Tel , Service support , Chest CTA 07/27/20 01:11 IMPRESSION: No pulmonary embolism, aortic aneurysm, or aortic dissection. Multi lobar airspace disease with hilar and mediastinal adenopathy consistent with pneumonia, either viral or bacterial. Individualized dose optimization techniques were used for this CT. at 0303 Reported and signed by: Rene Mcleod MD Electronically Signed: Rene Mcleod MD at 3:02 EDT Tel , Service support , Assessment/Plan All Active Problems (Last Reviewed 07/27/20 @ 04:[address] Antonio Nicolas MD) Pneumonia due to COVID-19 virus (Acute) Hypoxemia (Acute) RECOMMENDATIONS: 1. Convalescent serum and remdesivir per infectious disease 2. Continue anticoagulation and steroids 3. Initiate Lantus therapy 4. Wean oxygen as tolerated 5. Repeat CT scan in 2 to 3 months as an outpatient IMPRESSIONS: 1. Acute hypoxic respiratory insufficiency secondary to COVID-19 pneumonia Patient with low pro calcitonin, so concern for concomitant bacterial infection is low. Patient has been given Decadron and anticoagulation. Patient is to be seen by infectious disease. Defer to them on remdesivir and convalescent serum. Reviewing of the CT scan does show some areas of possible fibrotic changes. 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 This does not affect acute treatment, but patient should have a follow-up CT scan to evaluate as an outpatient. Continue to wean oxygen as tolerated. 2. Hypertension/diabetes mellitus/advanced age/poor insight Complicates care, management, recovery and prognosis. Patient did present with significantly elevated glucose, so new onset diabetes mellitus is suggested. Patient being placed on Decadron therapy, so will give basal insulin. Continue to monitor blood pressure as meds may need to be titrated up given concomitant steroid therapy. Inpatient E&M: 31649 Init Hosp L3
[2020-07-27 16:06] LABS: Bedside Glucose 314 mg/dL (70-110)
--- NOTE | 2020-07-27 16:14 | CON.PCM_ITS ---
Reason for Consult: covid Consulted by: Dr. Hinton History of Present Illness: The patient is a 75 year old M presented to ED overnight due to worsening dyspnea and cough. Sx started 10 days ago (07/17) with sore throat and congestion. Next had some cough, then fever, chills, nausea, dyspnea. has been sick with similar symptoms but has not been tested. Acutely worsened overnight, came to ED. Started on dex, feeling better this afternoon. Full ROS performed and neg except as noted above. - Medical History Past Medical History (Chronic Problems): Chronic Problems (Last Reviewed 07/27/20 @ 04:[address] Antonio Nicolas MD) Diabetes (Chronic) Hyperlipidemia (Chronic) Hypertension (Chronic) Allergies/Adverse Reactions: Allergies No Known Allergies Allergy (Verified 07/27/20 04:16) Home Medications: Ambulatory Orders Medication Instructions Recorded Atenolol [Tenormin (beta tiffani)] 25 mg PO BID 08/11/17 amlodipine 5 mg tablet 5 mg PO DAILY tab 09/03/17 - Social History Tobacco Use: non-smoker Vital Signs Temp Pulse Resp BP Pulse Ox 97.4 F L 60 16 129/70 H 92 07/27/20 15:45 07/27/20 15:45 07/27/20 15:45 07/27/20 15:45 07/27/20 15:45 Oxygen Flow Rate (L/min) 5 Oxygen Delivery Method Nasal Cannula Weight: 81 kg Body Mass Index (BMI) 27.1 Microbiology Past 72 Hours 07/27/20 00:04 Respiratory Panel (PCR) - Final Mucosa - Nose Laboratory Tests Past 24 Hrs 07/27/20 07/27/20 07/27/20 00:04 00:07 00:07 WBC 8.2 RBC 4.86 Hgb 14.4 Hct 43.2 MCV 88.9 MCH 29.6 MCHC 33.3 RDW Std Deviation 41.2 RDW Coeff of Blas 12.7 Plt Count 240 MPV 10.7 Immature Gran % (Auto) 0.600 Neut % (Auto) 87.3 H Lymph % (Auto) 7.5 L Gillespie % (Auto) 4.5 Eos % (Auto) 0.0 Baso % (Auto) 0.1 Absolute Neuts (auto) 7.1 Absolute Lymphs (auto) 0.61 L Nucleated RBC % 0 Fibrinogen 701 H D-Dimer Quant (PE/DVT) 1.28 H* Sodium Potassium Chloride Carbon Dioxide Anion Gap BUN Creatinine Estim Creat Clear Calc Est GFR (MDRD) Af Amer Est GFR (MDRD) Non-Af BUN/Creatinine Ratio Glucose Lactic Acid Calcium Total Bilirubin AST ALT Alkaline Phosphatase Lactate Dehydrogenase Total Creatine Kinase Troponin I C-React Prot Ext Range Total Protein Albumin Globulin Albumin/Globulin Ratio Procalcitonin COVID-19 (MYLENE) Detected 07/27/20 07/27/20 07/27/20 00:07 00:07 00:15 WBC RBC Hgb Hct MCV MCH MCHC RDW Std Deviation RDW Coeff of Blas Plt Count MPV Immature Gran % (Auto) Neut % (Auto) Lymph % (Auto) [place]illespie % (Auto) Eos % (Auto) Baso % (Auto) Absolute Neuts (auto) Absolute Lymphs (auto) Nucleated RBC % Fibrinogen D-Dimer Quant (PE/DVT) Sodium 132 L Potassium 3.2 L Chloride 97 L Carbon Dioxide 29.0 Anion Gap 6 BUN 14 Creatinine 0.98 Estim Creat Clear Calc 63.01 Est GFR (MDRD) Af Amer 96 Est GFR (MDRD) Non-Af 79 BUN/Creatinine Ratio 14.3 Glucose 221 H Lactic Acid 1.6 Calcium 8.5 Total Bilirubin 0.70 AST 44 H ALT 32 Alkaline Phosphatase 114 Lactate Dehydrogenase 291 H Total Creatine Kinase 107 Troponin I < 0.015 C-React Prot Ext Range 148.00 H Total Protein 7.9 Albumin 2.9 L Globulin 5.0 H Albumin/Globulin Ratio 0.6 L Procalcitonin 0.11 H COVID-19 (MYLENE) - Other Studies Radiology: [] reviewed Other Studies: [] Route of nutrition/ use of supplements: [] Nutritional Intake: [] IV Site: [] Mederos Catheter: [] - Physical Exam General: Alert, Oriented x3, Cooperative, No apparent distress HEENT: Atraumatic, PERRLA, EOMI Neck: Supple, No Nodes Lungs: Diminished Cardiovascular: Regular rate, Regular Rhythm Abdomen: Soft, Non Tender, Non-Distended Extremities: No edema Skin: No rashes IV Site: Peripheral, without redness Musculoskeletal: No Tenderness to Palpation of Joints or Extremities Neurological: Cranial nerves II-XII grossly intact - Assessment/Plan Antibiotics: [] Assessment/Plan: [] Active and Suspected Problems (Last Reviewed 07/27/20 @ 04:[address] Antonio Nicolas MD) Pneumonia due to COVID-19 virus (Acute) Hypoxemia (Acute) covid with hypoxia - Sat was 82% per EMS. On day 10 of symptoms, but feeling much better since starting on dex. Will not start plasma or remdesivir at this time. On 5L, no fever. CT showed no PE. Recommended get tested and quarantine for 10-14 days from start of symptoms. Thank you, will follow, d/w nursing
[2020-07-27] MEDS: dexAMETHasone 4 MG Tablet 6 MG PO (17:11)
[2020-07-27] MEDS: amLODIPine 5 MG Tablet PO (17:11)
[2020-07-27 21:01] LABS: Bedside Glucose 233 mg/dL (70-110)
[2020-07-28] VITALS (10 sets, daily range): BP systolic 120–146; BP diastolic 66–74; PULSE 60–67; RESP 18–20; TEMP 36.4–37.1; O2SAT 90–94
[2020-07-28 08:02] LABS: Absolute Lymphocyte Count 0.77 X10^3/uL (0.83-4.51); Absolute Neutrophil Count 10.6 X10^3/uL (2.0-7.7); Basophil# 0.01 X10^3/uL; Basophil% 0.1 % (0-1); Hematocrit 42.9 % (40-54); Lymphocyte # 0.77 X10^3/ul (4.0); Lymphocyte % 6.5 % (19-41); Mean Corp Hgb Conc 32.6 g/dL (32-36); Mean Corpuscular Hgb 29.3 pg (27.0-32.0); Mean Corpuscular Volume 89.7 fL (80-94); Monocyte# 0.47 X10^3/uL; NRBC Flagged by Analyzer 0 % (0-5); Neutrophil % 89.1 % (47-70); Platelet Count 328 K/mm3 (150-450); RBC Distribution Width CV 12.9 % (11.6-14.6); RBC Distribution Width SD 42.5 fl (35.1-43.9); Red Blood Count 4.78 M/mm3 (4.6-6.2); White Blood Count 11.9 K/mm3 (4.4-11.0)
[2020-07-28 08:19] LABS: ALB/GLOB Ratio 0.6 RATIO (0.9-2.4); AST(SGOT) 35 U/L (15-37); Alanine Aminotransfer ALT/SGPT 30 U/L (16-61); Albumin, Serum 2.7 g/dL (3.2-5.0); Alkaline Phosphatase 107 U/L (45-117); Anion Gap 4 (5-15); BUN 18 mg/dL (7-18); BUN/Creat Ratio 20.2 RATIO (10-20); Calcium,Total 8.9 mg/dL (8.5-10.1); Chloride 106 mmol/L (98-107); Creatinine, Serum 0.89 mg/dL (0.70-1.30); EST Glomerular Filtration Rate 88 mL/min (>60); Est Glom Filt Rate - Afr Amer 107 mL/min (>60); Estimated Creatinine Clearance 69.38 ml/min; Globulin 4.8 g/dL (2.2-4.2); Glucose 245 mg/dL (74-106); Potassium 3.8 mmol/L (3.5-5.1); Protein, Total 7.5 g/dL (6.4-8.2); Sodium Level 138 mmol/L (136-145)
[2020-07-28 08:36] LABS: Hemoglobin A1c 7.7 % (3.8-5.6)
[2020-07-28] MEDS: dexAMETHasone 4 MG Tablet 6 MG PO (09:20)
[2020-07-28] MEDS: Atenolol 25 MG Tablet PO (09:20)
[2020-07-28] MEDS: Enoxaparin 30 MG/0.3 ML Syringe SC ×2 (09:20→22:26)
[2020-07-28] MEDS: Insulin Lispro 100 UNIT/ML INSULN.PEN SC ×4 (09:23→21:59)
[2020-07-28 11:26] LABS: Bedside Glucose 285 mg/dL (70-110)
--- NOTE | 2020-07-28 14:59 | PCM.PN.PUL ---
Patient Problems: Active and Suspected Problems (Last Reviewed 07/27/20 @ 04:[address] Antonio Nicolas MD) Pneumonia due to COVID-19 virus (Acute) Hypoxemia (Acute) Subjective: Patient overall feels subjectively unchanged compared to yesterday. Patient is still having an intermittently productive cough. Patient did report cough paroxysms this morning. Patient has some mild chest pain, but feels this is improved compared to yesterday. Patient denies any hemoptysis or lower extremity edema. Patient does report he had difficulty sleeping last evening - Physical Exam Vitals/I&O's: Vital Signs Temp Pulse Resp BP Pulse Ox 36.4 C L 64 20 H 130/66 H 94 07/28/20 09:26 07/28/20 09:26 07/28/20 09:26 07/28/20 09:26 07/28/20 09:26 Oxygen Flow Rate (L/min) 8 Oxygen Delivery Method Nasal Cannula Weight: 81 kg Body Mass Index (BMI) 27.1 Intake and Output for Last 24 Hours 07/26/20 07/27/20 07/28/20 23:59 23:59 23:59 Intake Total 2557.08 / 2557.08 840 / 840 Output Total 620 / 620 200 / 200 Balance 1937.08 / 1937.08 640 / 640 General: Alert, Oriented x3, Cooperative, No apparent distress, - - Mild conversational dyspnea. HEENT: Atraumatic, PERRLA, EOMI, Normocephalic, - - No scleral injection or icterus noted Oral: Moist Mucosa, No Gingival or Mucosal Lesions/ Ulcerations Neck: Supple, No JVD, No Nodes, Trachea Midline Lungs: No wheeze, No rales, Diminished, Rhonchi - Left base, - - Symmetric expansion Cardiovascular: Regular rate, Regular Rhythm, Normal S1, Normal S2, No murmurs, No rub noted, No Gallop Abdomen: Bowel Sounds Present, Soft, Non Tender, Non-Distended Extremities: No clubbing, No cyanosis, No edema Skin: - - No change compared to previous Musculoskeletal: No Tenderness to Palpation of Joints or Extremities Lymphatic: No Cervical, Supraclavicular, or Inguinal Adenopathy Neurological: Cranial nerves II-XII grossly intact, Neuro grossly intact, Motor Exam 5/5 strength throughout Psych/Mental Status: Alert and oriented to time, place, person, mood and affect Microbiology Past 72 Hours 07/27/20 00:04 Mucosa - Nose Respiratory Panel (PCR) - Final Laboratory Results 07/27/20 00:07: Magnesium 2.0 07/27/20 15:55: POC Glucose 314 H 07/27/20 20:48: POC Glucose 233 H 07/28/20 06:35: WBC 11.9 H, RBC 4.78, Hgb 14.0, Hct 42.9, MCV 89.7, MCH 29.3, MCHC 32.6, RDW Std Deviation 42.5, RDW Coeff of Blas 12.9, Plt Count 328, MPV 11.0, Immature Gran % (Auto) 0.300, Neut % (Auto) 89.1 H, Lymph % (Auto) 6.5 L, [place] % (Auto) 4.0, Eos % (Auto) 0.0, Baso % (Auto) 0.1, Absolute Neuts (auto) 10.6 H, Absolute Lymphs (auto) 0.77 L, Nucleated RBC % 0 07/28/20 06:35: Sodium 138, Potassium 3.8, Chloride 106, Carbon Dioxide 28.0, Anion Gap 4 L, BUN 18, Creatinine 0.89, Estim Creat Clear Calc 69.38, Est GFR (MDRD) Af Amer 107, Est GFR (MDRD) Non-Af 88, BUN/Creatinine Ratio 20.2 H, Glucose 245 H, Calcium 8.9, Total Bilirubin 0.50, AST 35, ALT 30, Alkaline Phosphatase 107, Total Protein 7.5, Albumin 2.7 L, Globulin 4.8 H, Albumin/Globulin Ratio 0.6 L 07/28/20 06:35: Hemoglobin A1c 7.7 H 07/28/20 11:08: POC Glucose 285 H Current Medications Acetaminophen (Acetaminophen 325 Mg Tablet) 650 mg PO Q6H PRN PRN PRN Reason: Pain Score 1-10/Temp > 100.7 F Amlodipine Besylate (Amlodipine 5 Mg Tablet) 5 mg PO DINNER [facility] Last Admin: 07/27/20 17:11 Dose: 5 mg Documented by: Atenolol (Atenolol 25 Mg Tablet) 25 mg PO BID [facility] Last Admin: 07/28/20 09:20 Dose: 25 mg Documented by: Dexamethasone (Dexamethasone 4 Mg Tablet) 6 mg PO DAILY@0800 [facility] Last Admin: 07/28/20 09:20 Dose: 6 mg Documented by: Dextrose (Dextrose 50%-Water 25 Gm/50 Ml Disp.Syrin) 0 gm IV X1 PRN; Protocol PRN Reason: Hypoglycemia Enoxaparin Sodium (Enoxaparin 30 Mg/0.3 Ml Syringe) 30 mg SC BID [facility] Last Admin: 07/28/20 09:20 Dose: 30 mg Documented by: Glucagon (Glucagon 1 Mg/Ml Syringe) 1 mg IM .X1 PRN PRN Reason: Hypoglycemia Sodium Chloride () 250 mls @ 15 mls/hr IV .[id number] PRN PRN Reason: Saline Flush Sodium Chloride () 250 mls @ 15 mls/hr IV .[id number] PRN PRN Reason: Additional IVPB Infusion Insulin Glargine (Insulin Glargine 100 Units/Ml Pen) 20 units SC QHS [facility] Insulin Human Lispro (Insulin Lispro 100 Unit/Ml Insuln.Pen) 0 unit SC 4X/DAYCM CODY; Protocol Last Admin: 07/28/20 11:09 Dose: 6 units Documented by: Melatonin (Melatonin 3 Mg Tablet) 3 mg PO QHS PRN PRN PRN Reason: INSOMNIA Ondansetron HCl (Ondansetron 4 Mg/2 Ml Vial) 4 mg IV Q8H PRN PRN PRN Reason: NAUSEA/VOMITING Sodium Chloride (0.9% Saline Lock 10 Ml Syringe) 10 - 40 ml IV UD PRN PRN Reason: SALINE FLUSH Medical Necessity - Tobacco Use Smoking Status: Never smoker Assessment/Plan All Active Problems (Last Reviewed 07/27/20 @ 04:[address] Antonio Nicolas MD) Pneumonia due to COVID-19 virus (Acute) Hypoxemia (Acute) RECOMMENDATIONS: 1. No convalescent serum and remdesivir per infectious disease 2. Continue anticoagulation and steroids 3. Increase Lantus therapy 4. Wean oxygen as tolerated 5. Repeat CT scan in 2 to 3 months as an outpatient IMPRESSIONS: 1. Acute hypoxic respiratory insufficiency secondary to COVID-19 pneumonia Patient with low pro calcitonin, so concern for concomitant bacterial infection is low. Patient has been given Decadron and anticoagulation. Patient is to be seen by infectious disease. Patient appears to be somewhat improved compared to previous. Still requiring a significant amount of supplemental oxygen. Clinical suspicion for an underlying interstitial lung disease, but this cannot be confirmed at this time. Will need to increase Lantus given hyperglycemia. Potassium has been supplemented. Continue to restrict fluids if possible. 2. Hypertension/diabetes mellitus/advanced age/poor insight Complicates care, management, recovery and prognosis. Patient did present with significantly elevated glucose, so new onset diabetes mellitus is suggested. Patient being placed on Decadron therapy, so will give basal insulin. Continue to monitor blood pressure as meds may need to be titrated up given concomitant steroid therapy. Inpatient E&M: [id number] [facility] Hosp L3
--- NOTE | 2020-07-28 16:03 | PCM.PN.HOSP ---
Patient Problems: Active and Suspected Problems (Last Reviewed 07/27/20 @ 04:[address] Antonio Nicolas MD) Pneumonia due to COVID-19 virus (Acute) Hypoxemia (Acute) Reason for Visit: Follow-up on hypoxia/acute COVID-19 pneumonia Subjective: Patient was seen and examined. No acute events overnight. Patient is on 6 L of oxygen. Patient complains of insomnia. Melatonin prescribed Objective: Physical exam: Vitals/I&O's: Vital Signs Temp Pulse Resp BP Pulse Ox 97.8 F 67 20 H 135/74 H 92 07/28/20 15:05 07/28/20 15:05 07/28/20 15:05 07/28/20 15:05 07/28/20 15:05 Oxygen Flow Rate (L/min) 6 Oxygen Delivery Method Nasal Cannula Weight: 81 kg Body Mass Index (BMI) 27.1 Intake and Output for Last 24 Hours 07/26/20 07/27/20 07/28/20 23:59 23:59 23:59 Intake Total 2557.08 / 2557.08 840 / 840 Output Total 620 / 620 200 / 200 Balance 1937.08 / 1937.08 640 / 640 General: Alert, Oriented x3, Cooperative, No apparent distress, - - on 6L oxygen HEENT: Atraumatic, PERRLA, EOMI, Normocephalic Oral: Dry Mucosa Neck: Supple Lungs: Diminished Cardiovascular: Regular rate, Regular Rhythm, Normal S1, Normal S2, No murmurs Abdomen: Bowel Sounds Present, Soft, Non Tender, Non-Distended, No Hepato-splenomegaly Extremities: No edema, Capillary Refill Less than 3 Seconds Skin: No rashes Musculoskeletal: No Tenderness to Palpation of Joints or Extremities Lymphatic: No Cervical, Supraclavicular, or Inguinal Adenopathy Neurological: Cranial nerves II-XII grossly intact, Neuro grossly intact Psych/Mental Status: Normal Affect, Appropriate Microbiology Past 72 Hours 07/27/20 00:04 Mucosa - Nose Respiratory Panel (PCR) - Final Laboratory Results 07/27/20 00:07: Magnesium 2.0 07/27/20 15:55: POC Glucose 314 H 07/27/20 20:48: POC Glucose 233 H 07/28/20 06:35: WBC 11.9 H, RBC 4.78, Hgb 14.0, Hct 42.9, MCV 89.7, MCH 29.3, MCHC 32.6, RDW Std Deviation 42.5, RDW Coeff of Blas 12.9, Plt Count 328, MPV 11.0, Immature Gran % (Auto) 0.300, Neut % (Auto) 89.1 H, Lymph % (Auto) 6.5 L, [place] % (Auto) 4.0, Eos % (Auto) 0.0, Baso % (Auto) 0.1, Absolute Neuts (auto) 10.6 H, Absolute Lymphs (auto) 0.77 L, Nucleated RBC % 0 07/28/20 06:35: Sodium 138, Potassium 3.8, Chloride 106, Carbon Dioxide 28.0, Anion Gap 4 L, BUN 18, Creatinine 0.89, Estim Creat Clear Calc 69.38, Est GFR (MDRD) Af Amer 107, Est GFR (MDRD) Non-Af 88, BUN/Creatinine Ratio 20.2 H, Glucose 245 H, Calcium 8.9, Total Bilirubin 0.50, AST 35, ALT 30, Alkaline Phosphatase 107, Total Protein 7.5, Albumin 2.7 L, Globulin 4.8 H, Albumin/Globulin Ratio 0.6 L 07/28/20 06:35: Hemoglobin A1c 7.7 H 07/28/20 11:08: POC Glucose 285 H Current Medications Acetaminophen (Acetaminophen 325 Mg Tablet) 650 mg PO Q6H PRN PRN PRN Reason: Pain Score 1-10/Temp > 100.7 F Amlodipine Besylate (Amlodipine 5 Mg Tablet) 5 mg PO DINNER [facility] Last Admin: 07/27/20 17:11 Dose: 5 mg Documented by: Atenolol (Atenolol 25 Mg Tablet) 25 mg PO BID [facility] Last Admin: 07/28/20 09:20 Dose: 25 mg Documented by: Dexamethasone (Dexamethasone 4 Mg Tablet) 6 mg PO DAILY@0800 [facility] Last Admin: 07/28/20 09:20 Dose: 6 mg Documented by: Dextrose (Dextrose 50%-Water 25 Gm/50 Ml Disp.Syrin) 0 gm IV X1 PRN; Protocol PRN Reason: Hypoglycemia Enoxaparin Sodium (Enoxaparin 30 Mg/0.3 Ml Syringe) 30 mg SC BID [facility] Last Admin: 07/28/20 09:20 Dose: 30 mg Documented by: Glucagon (Glucagon 1 Mg/Ml Syringe) 1 mg IM .X1 PRN PRN Reason: Hypoglycemia Sodium Chloride () 250 mls @ 15 mls/hr IV .[id number] PRN PRN Reason: Saline Flush Sodium Chloride () 250 mls @ 15 mls/hr IV .[id number] PRN PRN Reason: Additional IVPB Infusion Insulin Glargine (Insulin Glargine 100 Units/Ml Pen) 20 units SC QHS CODY Insulin Human Lispro (Insulin Lispro 100 Unit/Ml Insuln.Pen) 0 unit SC 4X/DAYCM CODY; Protocol Last Admin: 07/28/20 11:09 Dose: 6 units Documented by: Melatonin (Melatonin 3 Mg Tablet) 3 mg PO QHS PRN PRN PRN Reason: INSOMNIA Ondansetron HCl (Ondansetron 4 Mg/2 Ml Vial) 4 mg IV Q8H PRN PRN PRN Reason: NAUSEA/VOMITING Sodium Chloride (0.9% Saline Lock 10 Ml Syringe) 10 - 40 ml IV UD PRN PRN Reason: SALINE FLUSH STROKE Vital Signs/Narrative: Vital Signs Temp Pulse Resp BP Pulse Ox 07/28/20 15:05 97.8 F 67 20 H 135/74 H 92 Medical Necessity - Tobacco Use Smoking Status: Never smoker Assessment/Plan All Active Problems (Last Reviewed 07/27/20 @ 04:[address] Antonio Nicolas MD) Pneumonia due to COVID-19 virus (Acute) Hypoxemia (Acute) 1. Acute hypoxic respiratory failure secondary to acute COVID-19 pneumonia Patient is currently on 6 to 8 L of oxygen Continue with breathing treatments, encourage use of incentive spirometer. Wean off oxygen for SPO2 more than 94% 2. Acute COVID-19 pneumonia with hypoxia CTA of the chest showed multilobar airspace disease with hilar mediastinal adenopathy Continue on dexamethasone 3. Hypokalemia, resolved Repeat BMP in a.m. 4. Hypertension, controlled, continue amlodipine and atenolol 5. Type II DM, blood sugars uncontrolled secondary to steroids Continue on Lantus as well as insulin sliding scale with blood glucose checks 6. DVT prophylaxis with Lovenox subcu Inpatient E&M: [id number] [facility] Hosp L3
[2020-07-28] MEDS: amLODIPine 5 MG Tablet PO (17:04)
[2020-07-28 17:30] LABS: Bedside Glucose 317 mg/dL (70-110)
[2020-07-28 23:01] LABS: Bedside Glucose 268 mg/dL (70-110)
[2020-07-29] VITALS (9 sets, daily range): BP systolic 129–155; BP diastolic 74–83; PULSE 45–65; RESP 20; TEMP 35.4–36.6; O2SAT 92–96
--- NOTE | 2020-07-29 07:41 | PN_ITS ---
Patient Problems: Active and Suspected Problems (Last Reviewed 07/27/20 @ 04:[address] Antonio Nicolas MD) Pneumonia due to COVID-19 virus (Acute) Hypoxemia (Acute) Reason for Visit: Follow-up on hypoxia/acute COVID-19 pneumonia Subjective: Patient was seen and examined. He denied any new complaints. Oxygen requirements has decreased on 10 L yesterday to 4 L. Denies any fever or chills. Objective: Physical exam: General: Alert, Oriented x3, Cooperative, No apparent distress, - - on 4L oxygen HEENT: Atraumatic, PERRLA, EOMI, Normocephalic Oral: Dry Mucosa Neck: Supple Lungs: Diminished Cardiovascular: Regular rate, Regular Rhythm, Normal S1, Normal S2, No murmurs Abdomen: Bowel Sounds Present, Soft, Non Tender, Non-Distended, No Hepato- splenomegaly Extremities: No edema, Capillary Refill Less than 3 Seconds Skin: No rashes Musculoskeletal: No Tenderness to Palpation of Joints or Extremities Lymphatic: No Cervical, Supraclavicular, or Inguinal Adenopathy Neurological: Cranial nerves II-XII grossly intact, Neuro grossly intact Psych/Mental Status: Normal Affect, Appropriate Vitals/I&O's: Vital Signs Temp Pulse Resp BP Pulse Ox 97.8 F 45 L 20 H 135/74 H 93 07/29/20 03:45 07/29/20 06:55 07/29/20 03:45 07/29/20 03:45 07/29/20 03:45 Oxygen Flow Rate (L/min) 8 Oxygen Delivery Method Nasal Cannula Weight: 81 kg Body Mass Index (BMI) 27.1 Intake and Output for Last 24 Hours 07/27/20 07/28/20 07/29/20 23:59 23:59 22:59 Intake Total 2557.08 / 2557.08 1560 / 1610 170 / 170 Output Total 620 / 620 200 / 200 200 / 200 Balance 1937.08 / 1937.08 1360 / 1410 -30 / -30 Microbiology Past 72 Hours 07/27/20 00:04 Mucosa - Nose Respiratory Panel (PCR) - Final Laboratory Results 07/28/20 11:08: POC Glucose 285 H 07/28/20 17:02: POC Glucose 317 H 07/28/20 21:57: POC Glucose 268 H Current Medications Acetaminophen (Acetaminophen 325 Mg Tablet) 650 mg PO Q6H PRN PRN PRN Reason: Pain Score 1-10/Temp > 100.7 F Amlodipine Besylate (Amlodipine 5 Mg Tablet) 5 mg PO DINNER [facility] Last Admin: 07/28/20 17:04 Dose: 5 mg Documented by: Atenolol (Atenolol 25 Mg Tablet) 25 mg PO BID [facility] Last Admin: 07/28/20 23:46 Dose: Not Given Documented by: Dexamethasone (Dexamethasone 4 Mg Tablet) 6 mg PO DAILY@0800 [facility] Last Admin: 07/28/20 09:20 Dose: 6 mg Documented by: Dextrose (Dextrose 50%-Water 25 Gm/50 Ml Disp.Syrin) 0 gm IV X1 PRN; Protocol PRN Reason: Hypoglycemia Enoxaparin Sodium (Enoxaparin 30 Mg/0.3 Ml Syringe) 30 mg SC BID [facility] Last Admin: 07/28/20 22:26 Dose: 30 mg Documented by: Glucagon (Glucagon 1 Mg/Ml Syringe) 1 mg IM .X1 PRN PRN Reason: Hypoglycemia Sodium Chloride () 250 mls @ 15 mls/hr IV .[id number] PRN PRN Reason: Saline Flush Sodium Chloride () 250 mls @ 15 mls/hr IV .[id number] PRN PRN Reason: Additional IVPB Infusion Insulin Glargine (Insulin Glargine 100 Units/Ml Pen) 20 units SC QHS [facility] Last Admin: 07/28/20 22:00 Dose: 20 units Documented by: Insulin Human Lispro (Insulin Lispro 100 Unit/Ml Insuln.Pen) 0 unit SC 4X/DAYCM [facility]; Protocol Last Admin: 07/28/20 21:59 Dose: 6 units Documented by: Melatonin (Melatonin 3 Mg Tablet) 3 mg PO QHS PRN PRN PRN Reason: INSOMNIA Ondansetron HCl (Ondansetron 4 Mg/2 Ml Vial) 4 mg IV Q8H PRN PRN PRN Reason: NAUSEA/VOMITING Sodium Chloride (0.9% Saline Lock 10 Ml Syringe) 10 - 40 ml IV UD PRN PRN Reason: SALINE FLUSH STROKE Vital Signs/Narrative: Vital Signs Temp Pulse Resp BP Pulse Ox 07/29/20 06:55 45 L 07/29/20 03:45 97.8 F 55 L 20 H 135/74 H 93 Medical Necessity - Tobacco Use Smoking Status: Never smoker Assessment/Plan All Active Problems (Last Reviewed 07/27/20 @ 04:[address] Antonio Nicolas MD) Pneumonia due to COVID-19 virus (Acute) Hypoxemia (Acute) 1. Acute hypoxic respiratory failure secondary to acute COVID-19 pneumonia Patient is currently on 4 L of oxygen Continue with breathing treatments, encourage use of incentive spirometer. Wean off oxygen for SPO2 more than 94% 2. Acute COVID-19 pneumonia with hypoxia CTA of the chest showed multilobar airspace disease with hilar mediastinal adenopathy Continue on dexamethasone 3. Hypokalemia, resolved Repeat BMP in a.m. 4. Hypertension, uncontrolled, Increase amlodipine to 10mg daily, continue atenolol 5. Type II DM, blood sugars uncontrolled secondary to steroids Continue on Lantus as well as insulin sliding scale with blood glucose checks 6. DVT prophylaxis with Lovenox subcu Inpatient E&M: [id number] Subs Hosp L2
[2020-07-29] MEDS: dexAMETHasone 4 MG Tablet 6 MG PO (08:59)
[2020-07-29] MEDS: Enoxaparin 30 MG/0.3 ML Syringe SC ×2 (09:00→22:00)
[2020-07-29] MEDS: Insulin Lispro 100 UNIT/ML INSULN.PEN SC ×4 (09:00→22:07)
[2020-07-29 09:17] LABS: Anion Gap 5 (5-15); BUN 22 mg/dL (7-18); BUN/Creat Ratio 23.8 RATIO (10-20); Calcium,Total 9.2 mg/dL (8.5-10.1); Chloride 105 mmol/L (98-107); Creatinine, Serum 0.92 mg/dL (0.70-1.30); EST Glomerular Filtration Rate 85 mL/min (>60); Est Glom Filt Rate - Afr Amer 103 mL/min (>60); Estimated Creatinine Clearance 67.12 ml/min; Glucose 204 mg/dL (74-106); Potassium 3.6 mmol/L (3.5-5.1); Sodium Level 140 mmol/L (136-145)
[2020-07-29 09:30] LABS: Bedside Glucose 221 mg/dL (70-110)
--- NOTE | 2020-07-29 11:17 | PN_ITS ---
Patient Problems: Active and Suspected Problems (Last Reviewed 07/27/20 @ 04:[address] Antonio Nicolas MD) Pneumonia due to COVID-19 virus (Acute) Hypoxemia (Acute) Subjective: Patient did okay overnight. No acute issues were reported. Patient continues to require higher flow nasal cannula to maintain saturations. Patient has been attempting incentive spirometer, but coughs and has to discontinue at approximately 750 cc. Patient is denying any chest pain. - Physical Exam Vitals/I&O's: Vital Signs Temp Pulse Resp BP Pulse Ox 36.6 C 51 L 20 H 150/77 H 92 07/29/20 08:57 07/29/20 08:57 07/29/20 08:57 07/29/20 08:57 07/29/20 08:57 Oxygen Flow Rate (L/min) 7 Oxygen Delivery Method Nasal Cannula Weight: 81 kg Body Mass Index (BMI) 27.1 Intake and Output for Last 24 Hours 07/27/20 07/28/20 07/29/20 23:59 23:59 22:59 Intake Total 2557.08 / 2557.08 1560 / 1610 170 / 170 Output Total 620 / 620 200 / 200 200 / 200 Balance 1937.08 / 1937.08 1360 / 1410 -30 / -30 General: Alert, Oriented x3, Cooperative, No apparent distress, Well developed, Well nourished, - - No conversational dyspnea. Appears stated age. HEENT: Atraumatic, PERRLA Oral: Moist Mucosa, No Gingival or Mucosal Lesions/ Ulcerations Neck: Supple, No JVD, No Nodes, Trachea Midline Lungs: No rhonchi, No wheeze, No rales, Diminished, - - Symmetric expansion. Cardiovascular: Regular rate, Regular Rhythm, Normal S1, Normal S2, No murmurs, No rub noted, No Gallop Abdomen: Bowel Sounds Present, Soft, Non Tender, Non-Distended Extremities: No clubbing, No cyanosis, No edema Skin: - - No change from previous Musculoskeletal: No Tenderness to Palpation of Joints or Extremities Lymphatic: No Cervical, Supraclavicular, or Inguinal Adenopathy Neurological: Cranial nerves II-XII grossly intact, Neuro grossly intact, Motor Exam 5/5 strength throughout Psych/Mental Status: Alert and oriented to time, place, person, mood and affect Microbiology Past 72 Hours 07/27/20 00:10 Blood Culture (Wb) - Anticubital Right Blood Culture - Preliminary No growth in 48 hours. 07/27/20 00:07 Blood Culture (Wb) - Anticubital Left Blood Culture - Preliminary No growth in 48 hours. 07/27/20 00:04 Mucosa - Nose Respiratory Panel (PCR) - Final Laboratory Results 07/28/20 17:02: POC Glucose 317 H 07/28/20 21:57: POC Glucose 268 H 07/29/20 07:45: Sodium 140, Potassium 3.6, Chloride 105, Carbon Dioxide 30.0, Anion Gap 5, BUN 22 H, Creatinine 0.92, Estim Creat Clear Calc 67.12, Est GFR (MDRD) Af Amer 103, Est GFR (MDRD) Non-Af 85, BUN/Creatinine Ratio 23.8 H, Gluco se 204 H, Calcium 9.2 07/29/20 08:55: POC Glucose 221 H Current Medications Acetaminophen (Acetaminophen 325 Mg Tablet) 650 mg PO Q6H PRN PRN PRN Reason: Pain Score 1-10/Temp > 100.7 F Amlodipine Besylate (Amlodipine 5 Mg Tablet) 5 mg PO D[facility]NER [facility] Last Admin: 07/28/20 17:04 Dose: 5 mg Documented by: Atenolol (Atenolol 25 Mg Tablet) 25 mg PO BID [facility] Last Admin: 07/29/20 09:00 Dose: Not Given Documented by: Dexamethasone (Dexamethasone 4 Mg Tablet) 6 mg PO DAILY@0800 [facility] Last Admin: 07/29/20 08:59 Dose: 6 mg Documented by: Dextrose (Dextrose 50%-Water 25 Gm/50 Ml Disp.Syrin) 0 gm IV X1 PRN; Protocol PRN Reason: Hypoglycemia Enoxaparin Sodium (Enoxaparin 30 Mg/0.3 Ml Syringe) 30 mg SC BID [facility] Last Admin: 07/29/20 09:00 Dose: 30 mg Documented by: Glucagon (Glucagon 1 Mg/Ml Syringe) 1 mg IM .X1 PRN PRN Reason: Hypoglycemia Sodium Chloride () 250 mls @ 15 mls/hr IV .[id number] PRN PRN Reason: Saline Flush Sodium Chloride () 250 mls @ 15 mls/hr IV .[id number] PRN PRN Reason: Additional IVPB Infusion Insulin Glargine (Insulin Glargine 100 Units/Ml Pen) 25 units SC QHS [facility] Insulin Human Lispro (Insulin Lispro 100 Unit/Ml Insuln.Pen) 0 unit SC 4X/DAYCM [facility]; Protocol Last Admin: 07/29/20 09:00 Dose: 4 units Documented by: Melatonin (Melatonin 3 Mg Tablet) 3 mg PO QHS PRN PRN PRN Reason: INSOMNIA Ondansetron HCl (Ondansetron 4 Mg/2 Ml Vial) 4 mg IV Q8H PRN PRN PRN Reason: NAUSEA/VOMITING Sodium Chloride (0.9% Saline Lock 10 Ml Syringe) 10 - 40 ml IV UD PRN PRN Reason: SALINE FLUSH Medical Necessity - Tobacco Use Smoking Status: Never smoker Assessment/Plan All Active Problems (Last Reviewed 07/27/20 @ 04:[address] Antonio Nicolas MD) Pneumonia due to COVID-19 virus (Acute) Hypoxemia (Acute) RECOMMENDATIONS: 1. No convalescent serum and remdesivir per infectious disease 2. Continue anticoagulation and steroids 3. Increase Lantus therapy 4. Wean oxygen as tolerated 5. Repeat CT scan in 2 to 3 months as an outpatient IMPRESSIONS: 1. Acute hypoxic respiratory insufficiency secondary to COVID-19 pneumonia Patient with low pro calcitonin, so concern for concomitant bacterial infection is low. Patient has been given Decadron and anticoagulation. Patient is to be seen by infectious disease. Patient appears to be somewhat improved compared to previous. Still requiring a significant amount of supplemental oxygen. Clinical suspicion for an underlying interstitial lung disease, but this cannot be confirmed at this time. Will need to increase Lantus given hyperglycemia. Potassium to be supplemented as indicated. Continue to restrict fluids if possible. Cannot exclude the possibility of the need for Airvo versus BiPAP overnight. Patient is very diligent about incentive spirometer. 2. Hypertension/diabetes mellitus/advanced age/poor insight Complicates care, management, recovery and prognosis. Patient did present with significantly elevated glucose, so new onset diabetes mellitus is suggested. Patient being placed on Decadron therapy, so will give basal insulin. Continue to monitor blood pressure as meds may need to be titrated up given concomitant steroid therapy. Inpatient E&M: [id number] [place] [id number]
[2020-07-29 11:45] LABS: Bedside Glucose 281 mg/dL (70-110)
[2020-07-29] MEDS: Magnesium Hydroxide 30 ML UDC PO (16:59)
[2020-07-29] MEDS: amLODIPine 5 MG Tablet PO ×2 (16:59→17:42)
[2020-07-29 17:26] LABS: Bedside Glucose 296 mg/dL (70-110)
[2020-07-29] MEDS: Atenolol 25 MG Tablet PO (21:59)
[2020-07-29 23:26] LABS: Bedside Glucose 269 mg/dL (70-110)
[2020-07-30 03:19] VITALS: BP 138/74; PULSE 51; RESP 20; TEMP 36.4; O2SAT 92
[2020-07-30 06:53] LABS: Absolute Lymphocyte Count 1.21 X10^3/uL (0.83-4.51); Absolute Neutrophil Count 8.8 X10^3/uL (2.0-7.7); Basophil# 0.01 X10^3/uL; Basophil% 0.1 % (0-1); Hematocrit 41.6 % (40-54); Hemoglobin 13.6 g/dL (13.0-16.5); Lymphocyte # 1.21 X10^3/ul (4.0); Lymphocyte % 11.3 % (19-41); Mean Corp Hgb Conc 32.7 g/dL (32-36); Mean Corpuscular Hgb 29.1 pg (27.0-32.0); Mean Corpuscular Volume 88.9 fL (80-94); Mean Platelet Vol. 10.6 fl (6.2-12.0); Monocyte# 0.69 X10^3/uL; Monocyte% 6.4 % (0-10); NRBC Flagged by Analyzer 0 % (0-5); Neutrophil # 8.75 X10^3/uL (2.7-7.7); Neutrophil % 81.7 % (47-70); Platelet Count 435 K/mm3 (150-450); RBC Distribution Width CV 13.2 % (11.6-14.6); RBC Distribution Width SD 43.1 fl (35.1-43.9); Red Blood Count 4.68 M/mm3 (4.6-6.2); White Blood Count 10.7 K/mm3 (4.4-11.0)
[2020-07-30 07:24] LABS: ALB/GLOB Ratio 0.7 RATIO (0.9-2.4); AST(SGOT) 66 U/L (15-37); Alanine Aminotransfer ALT/SGPT 74 U/L (16-61); Albumin, Serum 2.8 g/dL (3.2-5.0); Alkaline Phosphatase 119 U/L (45-117); Anion Gap 8 (5-15); BUN 24 mg/dL (7-18); BUN/Creat Ratio 33.9 RATIO (10-20); Calcium,Total 8.6 mg/dL (8.5-10.1); Chloride 104 mmol/L (98-107); Creatinine, Serum 0.71 mg/dL (0.70-1.30); EST Glomerular Filtration Rate 115 mL/min (>60); Est Glom Filt Rate - Afr Amer 140 mL/min (>60); Estimated Creatinine Clearance 61.75 ml/min; Glucose 169 mg/dL (74-106); Potassium 4.1 mmol/L (3.5-5.1); Protein, Total 6.8 g/dL (6.4-8.2); Sodium Level 140 mmol/L (136-145)
[2020-07-30 08:05] VITALS: O2SAT 90
[2020-07-30] MEDS: Enoxaparin 30 MG/0.3 ML Syringe SC (08:18)
[2020-07-30] MEDS: dexAMETHasone 4 MG Tablet 6 MG PO (08:18)
[2020-07-30 08:25] VITALS: PULSE 53; RESP 18; TEMP 35.8; O2SAT 91
[2020-07-30] MEDS: Insulin Lispro 100 UNIT/ML INSULN.PEN SC ×2 (08:27→12:00)
--- NOTE | 2020-07-30 09:07 | PCM.PN.HOSP ---
Patient Problems: Active and Suspected Problems (Last Reviewed 07/27/20 @ 04:[address] Antonio Nicolas MD) Pneumonia due to COVID-19 virus (Acute) Hypoxemia (Acute) Reason for Visit: COVID-19 pneumonia Subjective: Patient is a 75-year-old lady admitted with progressive shortness of breath diagnosed with acute COVID-19 pneumonia Objective: GENERAL: cooperative HEENT: Atraumatic; EYES; Anicteric, Normal Conjunctiva NECK; supple, normal thyroid, RESPIRATORY: Diminished to auscultation CARDIOVASCULAR: Regular S1 S2, GI: soft, normoactive bowel sounds, : No Renal angle tenderness; EXTREMITIES: No edema, no clubbing, MUSCULOSKELETAL: no muscle waisting NEURO: Awake; no lateralizing signs. SKIN: No Rash PSYCH; Flat affect Vitals/I&O's: Vital Signs Temp Pulse Resp BP Pulse Ox 96.5 F L 53 L 18 138/74 H 91 07/30/20 08:25 07/30/20 08:25 07/30/20 08:25 07/30/20 03:19 07/30/20 08:25 Oxygen Flow Rate (L/min) 4 Oxygen Delivery Method Nasal Cannula Weight: 81 kg Body Mass Index (BMI) 27.1 Intake and Output for Last 24 Hours 07/29/20 07/29/20 07/30/20 00:59 23:59 23:59 Intake Total 450 / 450 Output Total Balance 450 / 450 Microbiology Past 72 Hours 07/27/20 00:10 Blood Culture (Wb) - Anticubital Right Blood Culture - Preliminary No growth in 48 hours. 07/27/20 00:07 Blood Culture (Wb) - Anticubital Left Blood Culture - Preliminary No growth in 48 hours. Laboratory Results 07/29/20 07:45: Sodium 140, Potassium 3.6, Chloride 105, Carbon Dioxide 30.0, Anion Gap 5, BUN 22 H, Creatinine 0.92, Estim Creat Clear Calc 67.12, Est GFR (MDRD) Af Amer 103, Est GFR (MDRD) Non-Af 85, BUN/Creatinine Ratio 23.8 H, Glucose 204 H, Calcium 9.2 07/29/20 08:55: POC Glucose 221 H 07/29/20 11:37: POC Glucose 281 H 07/29/20 16:57: POC Glucose 296 H 07/29/20 22:05: POC Glucose 269 H 07/30/20 06:08: WBC 10.7, RBC 4.68, Hgb 13.6, Hct 41.6, MCV 88.9, MCH 29.1, MCHC 32.7, RDW Std Deviation 43.1, RDW Coeff of Blas 13.2, Plt Count 435, MPV 10.6, Immature Gran % (Auto) 0.500, Neut % (Auto) 81.7 H, Lymph % (Auto) 11.3 L, [place] % (Auto) 6.4, Eos % (Auto) 0.0, Baso % (Auto) 0.1, Absolute Neuts (auto) 8.8 H, Absolute Lymphs (auto) 1.21, Nucleated RBC % 0 07/30/20 06:08: Sodium 140, Potassium 4.1, Chloride 104, Carbon Dioxide 28.0, Anion Gap 8, BUN 24 H, Creatinine 0.71, Estim Creat Clear Calc 61.75, Est GFR (MDRD) Af Amer 140, Est GFR (MDRD) Non-Af 115, BUN/Creatinine Ratio 33.9 H, Glucose 169 H, Calcium 8.6, Total Bilirubin 0.60, AST 66 H, ALT 74 H, Alkaline Phosphatase 119 H, Total Protein 6.8, Albumin 2.8 L, Globulin 4.0, Albumin/Globulin Ratio 0.7 L Current Medications Acetaminophen (Acetaminophen 325 Mg Tablet) 650 mg PO Q6H PRN PRN PRN Reason: Pain Score 1-10/Temp > 100.7 F Amlodipine Besylate (Amlodipine 10 Mg Tablet) 10 mg PO [facility] Atenolol (Atenolol 25 Mg Tablet) 25 mg PO BID [facility] Last Admin: 07/30/20 08:23 Dose: Not Given Documented by: Dexamethasone (Dexamethasone 4 Mg Tablet) 6 mg PO DAILY@0800 [facility] Last Admin: 07/30/20 08:18 Dose: 6 mg Documented by: Dextrose (Dextrose 50%-Water 25 Gm/50 Ml Disp.Syrin) 0 gm IV X1 PRN; Protocol PRN Reason: Hypoglycemia Enoxaparin Sodium (Enoxaparin 30 Mg/0.3 Ml Syringe) 30 mg SC BID [facility] Last Admin: 07/30/20 08:18 Dose: 30 mg Documented by: Glucagon (Glucagon 1 Mg/Ml Syringe) 1 mg IM .X1 PRN PRN Reason: Hypoglycemia Sodium Chloride () 250 mls @ 15 mls/hr IV .[id number] PRN PRN Reason: Saline Flush Sodium Chloride () 250 mls @ 15 mls/hr IV .[id number] PRN PRN Reason: Additional IVPB Infusion Insulin Glargine (Insulin Glargine 100 Units/Ml Pen) 30 units SC QHS [facility] Last Admin: 07/29/20 22:08 Dose: 30 u Documented by: Insulin Human Lispro (Insulin Lispro 100 Unit/Ml Insuln.Pen) 0 unit SC 4X/DAYCM [facility]; Protocol Last Admin: 07/30/20 08:27 Dose: 2 units Documented by: Melatonin (Melatonin 3 Mg Tablet) 3 mg PO QHS PRN PRN PRN Reason: INSOMNIA Ondansetron HCl (Ondansetron 4 Mg/2 Ml Vial) 4 mg IV Q8H PRN PRN PRN Reason: NAUSEA/VOMITING Polyethylene Glycol (Polyethylene Glycol 3350 17 Gm Packet) 17 gm PO DAILY PRN PRN PRN Reason: Constipation Sodium Chloride (0.9% Saline Lock 10 Ml Syringe) 10 - 40 ml IV UD PRN PRN Reason: SALINE FLUSH STROKE Vital Signs/Narrative: Vital Signs Temp Pulse Resp Pulse Ox 07/30/20 08:25 96.5 F L 53 L 18 91 07/30/20 08:05 90 Medical Necessity - Tobacco Use Smoking Status: Never smoker Assessment/Plan All Active Problems (Last Reviewed 07/27/20 @ 04:[address] Antonio Nicolas MD) Pneumonia due to COVID-19 virus (Acute) Hypoxemia (Acute) Patient is a 75-year-old lady admitted with progressive shortness of breath diagnosed with acute COVID-19 pneumonia 1. Acute COVID-19 pneumonia with hypoxic respiratory failure ?Patient admitted to monitored bed did receive Decadron. Also placed on supplemental oxygen titrated to keep saturation greater than 94 -Had a discussion with patient regarding his disposition. Patient requested to be discharged. Patient will be assessed for home oxygen prior to being discharged 2. Hypokalemia ?Corrected per protocol 3. Hypertension - Blood pressure controlled, home medications continued with dose adjustment as needed 4. Diabetes mellitus type II -Controlled with hyperglycemia due to concomitant use of steroids -patient's oral hypoglycemics held. -Placed on long acting insulin, Accu-Cheks a.c. and at bedtime and covered with sliding scale insulin -Prescription written for long-acting insulin on discharge 5. DVT prophylaxis with Lovenox subcu Inpatient E&M: [id number] Subs Hosp L2
[2020-07-30 10:45] VITALS: BP 119/69; PULSE 53; RESP 18; TEMP 36.6; O2SAT 91
[2020-07-30 12:15] LABS: Bedside Glucose 302 mg/dL (70-110)
[2020-07-30 13:30] VITALS: BP 134/79; PULSE 62; RESP 24; TEMP 36.3; O2SAT 94
--- NOTE | 2020-07-30 14:08 | DCINST_ITS ---
- Discharge Diagnoses Current Active Problems: Current Active and Chronic Problems (Last Reviewed 07/27/20 @ 04:[address] Antonio Nicolas MD) Pneumonia due to COVID-19 virus (Acute) Hypoxemia (Acute) Diabetes (Chronic) Hyperlipidemia (Chronic) Hypertension (Chronic) You will use the following diet at home:: Calorie/Carbohydrate Controlled (specify 1200, 1400, etc) - 1800 Discharge Activity: Return to Normal Activity Allergies/Adverse Reactions: Allergies No Known Allergies Allergy (Verified 07/27/20 04:16) Medications to take at Discharge Atenolol [Tenormin (beta tiffani)] 25 mg PO BID 08/11/17 amlodipine 5 mg tablet 5 mg PO DAILY tab 09/03/17 Acetaminophen [Tylenol Tablet] 650 mg PO Q6H PRN PRN tab 07/30/20 Apixaban [Eliquis] 5 mg PO BID #28 tab 07/30/20 Dexamethasone [Decadron] 6 mg PO DAILY@0800 #7 tab 07/30/20 Insulin Glargine [Lantus SoloStar Pen] 30 units SC QHS #10 pen 07/30/20 The following prescriptions were given: Dexamethasone [Decadron] 6 mg PO DAILY@0800 #7 tab Transmission Status: Received by [facility]30 Apixaban [Eliquis] 5 mg PO BID #28 tab Transmission Status: Pending to [facility] #30 Insulin Glargine [Lantus SoloStar Pen] 30 units SC QHS #10 pen Transmission Status: Pending to [facility] #30 Primary Care Physician: Aly Lewis DO [Primary Care Provider] - Please follow up with your Primary Care Physician in: IN 1 WEEK Test Results: Test results from this visit will be discussed in further detail at your follow- up appointment, if applicable. Proposed Discharge Date: 07/30/20
--- NOTE | 2020-07-30 14:20 | PCM.DC.SUM ---
Discharge Date and Diagnosis - Problem List Patient Problems: Active and Suspected Problems (Last Reviewed 07/27/20 @ 04:[address] Antonio Nicolas MD) Pneumonia due to COVID-19 virus (Acute) Hypoxemia (Acute) Date of Admission: 07/27/20 Date of Discharge: 07/30/20 - Primary Discharge Diagnosis Acute Problems: Active Problems (Last Reviewed 07/27/20 @ 04:[address] Antonio Nicolas MD) Pneumonia due to COVID-19 virus (Acute) Hypoxemia (Acute) - Secondary Discharge Diagnosis Chronic Problems: Chronic Problems (Last Reviewed 07/27/20 @ 04:[address] Antonio Nicolas MD) Diabetes (Chronic) Hyperlipidemia (Chronic) Hypertension (Chronic) Hospital Course and Treatment Summary of Care Provided: Patient is a 75-year-old lady admitted with progressive shortness of breath diagnosed with acute COVID-19 pneumonia 1. Acute COVID-19 pneumonia with hypoxic respiratory failure ?Patient admitted to monitored bed did receive Decadron. Also placed on supplemental oxygen titrated to keep saturation greater than 94 -Had a discussion with patient regarding his disposition. Patient requested to be discharged. Patient will be assessed for home oxygen prior to being discharged patient did qualify for home oxygen. He will need portability since his mobile both at home as well as in the community. 2. Hypokalemia ?Corrected per protocol 3. Hypertension - Blood pressure controlled, home medications continued with dose adjustment as needed 4. Diabetes mellitus type II -Controlled with hyperglycemia due to concomitant use of steroids -patient's oral hypoglycemics held. -Placed on long acting insulin, Accu-Cheks a.c. and at bedtime and covered with sliding scale insulin -Prescription written for long-acting insulin on discharge 5. DVT prophylaxis with Lovenox subcu Patient Problems: Active and Suspected Problems (Last Reviewed 07/27/20 @ 04:[address] Antonio Nicolas MD) Pneumonia due to COVID-19 virus (Acute) Hypoxemia (Acute) - Physical Exam Vitals/I&O's: Vital Signs Temp Pulse Resp BP Pulse Ox 97.8 F 53 L 18 119/69 91 07/30/20 10:45 07/30/20 10:45 07/30/20 10:45 07/30/20 10:45 07/30/20 10:45 Oxygen Flow Rate (L/min) 3 Oxygen Delivery Method Nasal Cannula Weight: 81 kg Body Mass Index (BMI) 27.1 Intake and Output for Last 24 Hours 07/29/20 07/29/20 07/30/20 00:59 23:59 23:59 Intake Total 450 / 450 Output Total Balance 450 / 450 General: Alert Lungs: Diminished Cardiovascular: Regular rate, Regular Rhythm Microbiology Past 72 Hours 07/27/20 00:10 Blood Culture (Wb) - Anticubital Right Blood Culture - Preliminary No growth in 48 hours. 07/27/20 00:07 Blood Culture (Wb) - Anticubital Left Blood Culture - Preliminary No growth in 48 hours. Laboratory Results 07/29/20 16:57: POC Glucose 296 H 07/29/20 22:05: POC Glucose 269 H 07/30/20 06:08: WBC 10.7, RBC 4.68, Hgb 13.6, Hct 41.6, MCV 88.9, MCH 29.1, MCHC 32.7, RDW Std Deviation 43.1, RDW Coeff of Blas 13.2, Plt Count 435, MPV 10.6, Immature Gran % (Auto) 0.500, Neut % (Auto) 81.7 H, Lymph % (Auto) 11.3 L, [place] % (Auto) 6.4, Eos % (Auto) 0.0, Baso % (Auto) 0.1, Absolute Neuts (auto) 8.8 H, Absolute Lymphs (auto) 1.21, Nucleated RBC % 0 07/30/20 06:08: Sodium 140, Potassium 4.1, Chloride 104, Carbon Dioxide 28.0, Anion Gap 8, BUN 24 H, Creatinine 0.71, Estim Creat Clear Calc 61.75, Est GFR (MDRD) Af Amer 140, Est GFR (MDRD) Non-Af 115, BUN/Creatinine Ratio 33.9 H, Glucose 169 H, Calcium 8.6, Total Bilirubin 0.60, AST 66 H, ALT 74 H, Alkaline Phosphatase 119 H, Total Protein 6.8, Albumin 2.8 L, Globulin 4.0, Albumin/Globulin Ratio 0.7 L 07/30/20 11:58: POC Glucose 302 H Current Medications Acetaminophen (Acetaminophen 325 Mg Tablet) 650 mg PO Q6H PRN PRN PRN Reason: Pain Score 1-10/Temp > 100.7 F Amlodipine Besylate (Amlodipine 10 Mg Tablet) 10 mg PO [facility] Atenolol (Atenolol 25 Mg Tablet) 25 mg PO BID [facility] Last Admin: 07/30/20 08:23 Dose: Not Given Documented by: Dexamethasone (Dexamethasone 4 Mg Tablet) 6 mg PO DAILY@0800 [facility] Last Admin: 07/30/20 08:18 Dose: 6 mg Documented by: Dextrose (Dextrose 50%-Water 25 Gm/50 Ml Disp.Syrin) 0 gm IV X1 PRN; Protocol PRN Reason: Hypoglycemia Enoxaparin Sodium (Enoxaparin 30 Mg/0.3 Ml Syringe) 30 mg SC BID [facility] Last Admin: 07/30/20 08:18 Dose: 30 mg Documented by: Glucagon (Glucagon 1 Mg/Ml Syringe) 1 mg IM .X1 PRN PRN Reason: Hypoglycemia Sodium Chloride () 250 mls @ 15 mls/hr IV .[id number] PRN PRN Reason: Saline Flush Sodium Chloride () 250 mls @ 15 mls/hr IV .[id number] PRN PRN Reason: Additional IVPB Infusion Insulin Glargine (Insulin Glargine 100 Units/Ml Pen) 30 units SC QHS [facility] Last Admin: 07/29/20 22:08 Dose: 30 u Documented by: Insulin Human Lispro (Insulin Lispro 100 Unit/Ml Insuln.Pen) 0 unit SC 4X/DAYCM [facility]; Protocol Last Admin: 07/30/20 12:00 Dose: 6 units Documented by: Melatonin (Melatonin 3 Mg Tablet) 3 mg PO QHS PRN PRN PRN Reason: INSOMNIA Ondansetron HCl (Ondansetron 4 Mg/2 Ml Vial) 4 mg IV Q8H PRN PRN PRN Reason: NAUSEA/VOMITING Polyethylene Glycol (Polyethylene Glycol 3350 17 Gm Packet) 17 gm PO DAILY PRN PRN PRN Reason: Constipation Sodium Chloride (0.9% Saline Lock 10 Ml Syringe) 10 - 40 ml IV UD PRN PRN Reason: SALINE FLUSH Discharge Diet: 1800 Calorie Control Diet Discharge Activity: Return to Normal Activity Home Medications: Medications to take at Discharge Atenolol [Tenormin (beta tiffani)] 25 mg PO BID 08/11/17 amlodipine 5 mg tablet 5 mg PO DAILY tab 09/03/17 Acetaminophen [Tylenol Tablet] 650 mg PO Q6H PRN PRN tab 07/30/20 Apixaban [Eliquis] 5 mg PO BID #28 tab 07/30/20 Dexamethasone [Decadron] 6 mg PO DAILY@0800 #7 tab 07/30/20 Insulin Glargine [Lantus SoloStar Pen] 30 units SC QHS #10 pen 07/30/20 Following Prescriptions Were Given to Patient: Dexamethasone [Decadron] 6 mg PO DAILY@0800 #7 tab Transmission Status: Received by [facility]30 Apixaban [Eliquis] 5 mg PO BID #28 tab Transmission Status: Received by [facility] #30 Insulin Glargine [Lantus SoloStar Pen] 30 units SC QHS #10 pen Transmission Status: Received by [facility] #30 Primary Care Physician: Aly Lewis DO [Primary Care Provider] - Please follow up with your Primary Care Physician in: IN 1 WEEK Disposition: Home Minutes spent on discharge:: 45 Patient Condition:: Stable Medical Necessity - Tobacco Use Smoking Status: Never smoker Meaningful Use Info Meaningful Use Diagnoses (Choose all that apply): None applicable Inpatient E&M: [id number] Disch Hosp
[2020-07-30 14:48] VITALS: O2SAT 87; O2SAT 89
--- NOTE | 2020-07-30 14:49 | NURSING ---
pt never has been on insulin before and reports that has no test strips or machine to check bs even. corin welsh working on home o2 set up and diabetic supplies
--- NOTE | 2020-07-30 15:00 | CASEMGMT ---
Pt qualifies for 3liters nd continuous home oxygen at this time. Pt had stated no preference for DME company and states has a debit card to pay at this time. Pt's meds were sent to [facility] but pt states would prefer they go to [facility] retail pharmacy so that he can take them home from here at this time. Call to Sol in [facility] retail pharmacy and she is aware to get meds from [facility] at this time, voices understanding and is aware to call for [employer] card if they do not have one in pharmacy for pt at this time. Pt will also need a glucometer to check blood sugars at home and script to be given to pt for a reference and he states he can have someone pick one up for him. Pt states he will call and get a bull driver to take him home after he is made aware that the [facility] van does not transport COVID pt's. Bethany HUGGINS updated on all and states will call to go over d/c instructions with her as well. [place] [facility] [place] and script/testing [place]ed at this time. Pt voices no further questions/concerns/needs at this time. Rios HUGGINS CM
--- NOTE | 2020-07-30 17:56 | NURSING ---
port o2 tank in room. pt waiting on family to come.
--- NOTE | 2020-07-31 16:31 | CASEMGMT ---
BHAVNA FORD COVID F/U Phone Call Discharge date: 07/30/2020 Call date: 07/31/2020 Call time: [id number] Admission dx: SARS COVID 19 Pt states has been 'doing pretty good' since discharge. Pt states that he did get his oxygen set up and his pulse ox was actually 90% room air this am when he did not have O2 on. Pt states has been using IS at home as well. Pt does not c/o any SOB at this time and speaks in full sentences. Pt states did not take his lantus last pm and when he checked his sugar with his glucometer after lunch today, it was 364. Pt states he then took the lantus 30 units sc at that time. Pt/ advised that the lantus is to be taken at bedtime and that he should not re-dose again tonight but to keep track of sugars and call Dr. Lewis in the am to update and get appt scheduled. Pt/ voice understanding. Pt/ aware to then get on schedule of taking lantus sc at bedtime, starting tomorrow pm, voice understanding. Pt states that he hopes to not continue on the insulin and this BHAVNA FORD advised him that he needs to f/u with Dr. Lewis to see about that, voices understanding. Pt states was has had sx's as well but not as severe. Pt/ voice no further questions/concerns/needs at this time. [place] BHAVNA FORD
== END 2020-07-30 18:42 | disposition home or self-care (01) | DRG 177 ==
LOC: ED 07-27 02:32 → PCU 07-27 03:28
PROVIDERS: Internal Medicine; Internal Medicine Critical Care Medicine; Admitting Provider Hospitalist; Emergency Provider Emergency Medicine; PCP Family Medicine; Visit Provider Internal Medicine
DX: U07.1 COVID-19 (principal); J12.89 Other viral pneumonia; J96.01 Acute respiratory failure with hypoxia; I10 Essential (primary) hypertension; E78.5 Hyperlipidemia, unspecified; E87.6 Hypokalemia; E11.65 Type 2 diabetes mellitus with hyperglycemia; T38.0X5A Adverse effect of glucocorticoids and synthetic analogues, initial encounter; G47.00 Insomnia, unspecified; Z79.4 Long term (current) use of insulin; Z79.01 Long term (current) use of anticoagulants; Z79.899 Other long term (current) drug therapy
CPT/HCPCS: 36415; 71045; 71275; 80048; 80053; 82550; 82962; 83036; 83605; 83615; 83735; 84145; 84484; 85025; 85379; 85384; 86140; 87040; 87633; 87635; 93005; 97802; 99285; J7030; Q9967; A4216; U0002

== ENCOUNTER 2022-07-04 16:03 | Emergency (ER) | payer OTHER, SELFPAY ==
[2022-07-04 16:03] VITALS: BP 147/94; PULSE 87; RESP 16; TEMP 36.2; O2SAT 93
[2022-07-04 16:04] VITALS: BP 147/94; PULSE 87; RESP 16; TEMP 36.2; O2SAT 93; BMI 26.2
--- NOTE | 2022-07-04 17:40 | EX.ED.UPPERE ---
HPI History of Present Illness HPI Narrative: Right ring finger laceration. Chief Complaint: Laceration Informant: patient Occured/Mechanism Mechanism/Context: Yes injury and Yes blunt trauma Onset/Context/Timing Onset: Today and Hours Context: Sudden Onset Timing: Continuous Quality of Pain: Aching Current Severity: Mild Maximum Severity: Mild Associated Symptoms Associated Symptoms: Negative for Parasthesia, Weakness or Loss of Funtion Narrative Narrative: 77-year-old [employer] male was working with a horse had his hand in the rain to control the horse and when the horse pulled away has a laceration the palmar aspect of his right ring finger. Said also the horse stepped on his left foot but he does not think that is a big issue. Denies any LOC. No other complaints. He is right-hand dominant. Tetanus Immunization: <5 years Prior similar symptoms: No Recent Illness/Hospitalization: No PFSH PFS Medical History (Updated 07/04/22 @ 19:[address] Casey Mendoza MD) Dizziness Hyperlipidemia Hypertension Home Medications atenolol 25 mg tablet 25 mg PO BID BP 08/11/17 [History Last Taken 07/26/20] amlodipine 5 mg tablet 5 mg PO DAILY BP 09/03/17 [History Last Taken 07/26/20] acetaminophen 325 mg tablet 650 mg PO Q6H PRN PRN Pain Score 1-10/Temp > 100.7 F 07/30/20 [Rx Last Taken Unknown] apixaban 5 mg tablet 5 mg PO BID #28 tabs 07/30/20 [Rx Last Taken Unknown] dexamethasone 4 mg tablet 6 mg PO DAILY@0800 #7 tabs 07/30/20 [Rx Last Taken Unknown] insulin glargine 100 unit/mL (3 mL) subcutaneous pen 30 units (0.3 mL) subcut QHS ##10 07/30/20 [Rx Last Taken Unknown] Allergy/AdvReac Type Severity Reaction Status Date / Time No Known Allergies Allergy Verified 07/27/20 04:16 Social History Smoking Status: Never smoker ROS ROS ED ROS Narrative Denies recent illness. Review of Systems ROS Unobtainable: Denies due to encephalopathy Constitutional Constitutional ED: Denies chills Eyes Eyes: Denies blurry vision ENT ENT ED: Denies ear pain Cardiovascular Cardiovascular: Denies chest pain Respiratory/Chest Respiratory/Chest: Denies cough Gastrointestinal Gastrointestinal: Denies abdominal pain Genitourinary Genitourinary ED: Denies dysuria Musculoskeletal Musculoskeletal: Denies back pain Integumentary Denies abscess Neurologic Neurologic: Denies headache(s) Psychiatric Psychiatric: Denies anxiety Endocrine Endocrinology: Denies cold intolerance Hematologic/Lymphatic Hematologic/Lymphatic: Denies easy bleeding Allergic/Immunologic Allergic/Immunologic ED: Denies mouth swelling or tongue swelling EXAM Physical Exam Narrative Exam Narrative: Well-appearing older Ep[employer] male. Vital signs stable afebrile. H EENT exam unremarkable atraumatic. Neck nontender. Lungs clear to auscultation. Heart regular rate and rhythm no murmur rate about 85. Chest wall nontender. Back nontender. Pelvic girdle intact. Abdomen soft nontender normal bowel sounds no peritoneal signs. Moving all 4 extremities. Right hand ring finger mid phalanx he has a flap laceration. It is several centimeters in length. He is able to open and close his hand. He has full flexion-extension of all the digits including the right ring finger. He has normal touch sensation. And cap refill. There is no bony deformity. No infection. No obvious foreign body. Rest of exam unremarkable. His left foot does have a abrasion on top of the. But there is no bony deformity. He is able to wiggle his toes. He has normal range of motion. There is no bony tenderness or deformity. Const Vital Signs: 07/04/22 16:04 07/04/22 16:03 Temperature 97.2 F L 97.2 F L Temperature Source Temporal Temporal Pulse Rate 87 87 Respiratory Rate 16 16 Blood Pressure 147/94 H 147/94 H Blood Pressure Mean 111 111 Pulse Ox 93 93 Oxygen Delivery Method Room Air Room Air Positive well nourished and well developed; Negative for obese, cachectic, contractures or unkempt General Appearance ED: well developed and NAD; Negative for unkempt, cachectic, contractures, cyanotic or diaphoretic Nutritional Appearance: Negative for cachectic or obese HEENT Reports moist mucous membranes normocephalic and atraumatic; Negative for trauma or tenderness Eyes PERRL and EOMs intact bilaterally General Eye ED: Negative for other Neck full ROM and supple General: Negative for tenderness Lymph Lymphatic: Negative for other Chest Wall inspection of chest normal and palpation of chest normal Chest: Negative for other Resp normal respiratory effort and clear to auscultation bilaterally Effort and Inspection: Negative for pain with movement Auscultation: Negative for rales, rhonchi or wheezes Cardio regular rate, regular rhythm, S1 normal heart sound, S2 normal heart sound and no murmurs Rate: Negative for bradycardia GI non-tender, non-distended and no masses Inspection: Negative for abdominal distention Auscultation: normoactive bowel sounds Palpation: soft; Negative for tender or guarding Back/Spine no CVA tenderness General Back: Negative for CVA tenderness Cervical Spine: Negative for cervical spine tenderness Thoracic Spine / Upper Back: Negative for thoracic spinal tenderness Lumbar Spine / Lower Back: Negative for lumbar spinal tenderness Extremity normal to inspection and full ROM Extremity Narrative: Except right hand, ring finger palmar side middle phalanx is a flap laceration. Full flexion. Full extension. No bony deformity. Normal touch sensation. General Extremety ED: Negative for edema General Extremity: Negative for edema Neuro oriented x3, CN's II-XII intact bilaterally, moves all extremities, no focal motor deficits and no sensory deficits noted Sensorium / Orientation: alert, oriented to person, oriented to place and oriented to time; Negative for orientation impaired, lethargic or stuporous Sensory Exam: No sensory level loss detected Motor Exam: strength 5/5 throughout Psych mental status grossly normal Appearance: Negative for unkempt Attitude: No agitated Mood & Affect: Negative for depressed or anxious Skin General Skin Exam: Negative for petechiae Lesions: no lesions Rashes: no rashes Trauma: laceration; Negative for no lacerations or abrasions MDM MDM MDM Narrative Medical decision making narrative: 77-year-old male laceration right ring finger. Will need to be repaired. Digital block, cleaned, explore and repair. Tetanus is already up-to-date within the last 5 years. He does not need an x-ray. Procedures Lacerations Right ring finger laceration repair:: Length: 1.57 in Depth: Sub Q Shape: Flap Prep: Stella Laceration repair: Digital block, Irrigated, Lidocaine, Local, Nerve block and Skin sutures Number of Sutures/[place]: 10 Suture Information: Ethilon, Simple and 4-0 Comment: Right ring finger. Palmar side. Middle phalanx. Digital block anesthesia. Lidocaine. Explored. Cleaned using Shur-Clens irrigated and washed. No foreign body. No fracture. No tendon involvement. Closed using simple interrupted 4-0 Ethilon sutures. Proper hemostasis wound closure is obtained. Patient tolerated procedure well. He was instructed on wound care and follow-up. I placed 10 simple interrupted 4-0 Ethilon sutures. Proper hemostasis wound closure is obtained. Patient tolerated well. He is instructed on wound care. Suture removal in 14 days. Return if any signs of infection. Discharge Plan Triage Chief Complaint: Laceration ED Provider: Casey Mendoza Dx/Rx/DC Orders Clinical Impression: Finger laceration, Diabetes Instructions: ED Laceration, Hand: All Closures Prescriptions: No Action amlodipine 5 mg tablet 5 mg PO DAILY atenolol 25 MG tablet 25 mg PO BID Label Comments: TAKE 1 TABLET TWICE DAILY acetaminophen 325 MG tablet 650 mg PO Q6H PRN PRN (Reason: Pain Score 1-10/Temp > 100.7 F) 0RF dexamethasone 4 MG tablet 6 mg PO DAILY@0800 Qty: 7 0RF apixaban 5 MG tablet 5 mg PO BID Qty: 28 0RF insulin glargine 100 UNITS/ML insulin pen 30 units SC QHS Qty: 10 0RF Primary Care Provider: Aly Lewis Referrals: Aly Lewis DO [Primary Care Provider] - 10-14 Days suture removal Activity Restrictions/Additional Instructions: Ice and elevate your hand to decrease pain and swelling. Tylenol for pain. If our dressing stays dry and clean you can leave it on for 3 or 4 days. Then clean and dress it daily. Apply antibiotic ointment daily. Return if any signs of infection such as redness, fever, streaks or pus. This is a bad laceration. Should heal well. Leave the stitches in 14 days before they are removed. Disposition Disposition: Home, Self Care
[2022-07-04] MEDS: Lidocaine 1% (20 ml mdv) 20 ML Vial 10 ML INFILT (18:57)
== END 2022-07-04 19:59 | disposition home or self-care (01) ==
PROVIDERS: Emergency Provider Emergency Medicine; PCP Family Medicine; Visit Provider Emergency Medicine
DX: S61.214A Laceration without foreign body of right ring finger without damage to nail, initial encounter (principal); E11.9 Type 2 diabetes mellitus without complications; Z79.4 Long term (current) use of insulin; W26.8XXA Contact with other sharp object(s), not elsewhere classified, initial encounter; Y93.89 Activity, other specified; E78.5 Hyperlipidemia, unspecified; I10 Essential (primary) hypertension; Z79.899 Other long term (current) drug therapy
CPT/HCPCS: 12002; 99282

== ENCOUNTER 2024-08-01 12:25 | Observation (INO) | payer OTHER, SELFPAY ==
[2024-08-01] VITALS (8 sets, daily range): BP systolic 114–153; BP diastolic 62–90; PULSE 53–74; RESP 14–19; TEMP 36.1–36.9; O2SAT 92–98; BMI 25.0
--- NOTE | 2024-08-01 12:47 | EKG12_ITS ---
Test Reason : CP Blood Pressure : */* mmHG Vent. Rate : 69 BPM Atrial Rate : 69 BPM P-R Int : 194 ms QRS Dur : 100 ms QT Int : 404 ms P-R-T Axes : 68 13 56 degrees QTcB Int : 432 ms Sinus rhythm with frequent and consecutive Premature ventricular complexes Abnormal ECG Confirmed by Demetrius Yañez ([id number]), sound editor ARY DIETZ ([id number]) on 08/02/2024 9:17:13 AM Referred By: NASREEN/MAURICE Confirmed By: Demetrius Yañez
--- NOTE | 2024-08-01 12:47 | ED.VIS.CHEST ---
HPI <YVAN Teresa - Last Filed: 08/01/24 14:10> History of Present Illness Chief Complaint: Chest Pain Narrative Narrative: 79-year-old Bret male with past medical history of hypertension presents with chest pain. He states last evening he had chest tightness lasting 3 to 4 hours and was belching more than usual. He took an aspirin and went to bed and was able to sleep. This morning he was doing light chores and again had midsternal chest tightness from around 7 to 8 AM. He took another aspirin and it seemed to go away but he still has very mild chest tightness present. He has no shortness of breath. He denies having exertional chest pain or dyspnea or orthopnea. He had no pain in his jaw or arms. No nausea or vomiting. He denies cardiac history. No history of DVT/PE or risk factors. [facility] <YVAN Teresa - Last Filed: 08/01/24 14:10> [facility] Medical History (Updated 08/01/24 @ 13:28 by YVAN Teresa) Hyperlipidemia Dizziness Hypertension Home Medications ?Medication ?Instructions ?Recorded ?Last Taken ?Type amlodipine 5 mg tablet 5 mg PO DAILY BP 09/03/17 08/01/24 History atenolol 50 mg tablet 25 mg PO BID 08/01/24 07/31/24 History Allergy/AdvReac Type Severity Reaction Status Date / Time No Known Allergies Allergy Verified 08/01/24 12:26 Social History Smoking Status: Never smoker ROS <YVAN Teresa - Last Filed: 08/01/24 14:10> ROS ED ROS Narrative Constitutional: Negative for fever, chills, malaise. CVS: Positive for chest pain. Negative for palpitations, syncope. Respiratory: Negative for shortness of breath, cough. GI: Negative for abdominal pain, nausea, vomiting. EXAM <YVAN Treesa - Last Filed: 08/01/24 14:10> Physical Exam Narrative Exam Narrative: CONST: Patient sitting in no acute distress. EYES: Normal inspection. NECK: Normal inspection. RESP: No respiratory distress, CTAB. CVS: Regular rate and rhythm, no murmur, no gallop. ABD: Soft and nontender, no guarding or rebound, nondistended, no hepatosplenomegaly. SKIN: Color normal, no rash, warm, dry, intact. EXTREMITIES: Normal appearance, no pedal edema. NEURO: Alert and answering questions appropriately. PSYCH: Normal affect. Const Vital Signs: 08/01/24 12:26 08/01/24 12:47 08/01/24 13:25 Temperature 97 F L Temperature Source Temporal Pulse Rate 63 55 L Respiratory Rate 18 19 H Blood Pressure 141/85 H 141/85 H Blood Pressure Mean 103 103 Pulse Ox 95 98 98 Oxygen Delivery Method Room Air Room Air Room Air 08/01/24 14:00 Temperature Temperature Source Pulse Rate 58 L Respiratory Rate 19 H Blood Pressure 145/82 H Blood Pressure Mean 103 Pulse Ox 97 Oxygen Delivery Method Room Air <Dr. Toney Roland DO - Last Filed: 08/01/24 13:20> Physical Exam Const Vital Signs: 08/01/24 12:26 08/01/24 12:47 08/01/24 13:25 Temperature 97 F L Temperature Source Temporal Pulse Rate 63 55 L Respiratory Rate 18 19 H Blood Pressure 141/85 H 141/85 H Blood Pressure Mean 103 103 Pulse Ox 95 98 98 Oxygen Delivery Method Room Air Room Air Room Air 08/01/24 14:00 Temperature Temperature Source Pulse Rate 58 L Respiratory Rate 19 H Blood Pressure 145/82 H Blood Pressure Mean 103 Pulse Ox 97 Oxygen Delivery Method Room Air <YVAN Teresa - Last Filed: 08/01/24 14:10> Heart Score Score: 5 <Dr. Toney Roland DO - Last Filed: 08/01/24 13:20> Heart Score History: Moderately Suspicious ECG: Nonspecific Repolarization Age: >/= 65 years Risk Factors: 1 or 2 Risk Factors Troponin: </= Normal Limit Score: 5 MDM <YVAN Teresa - Last Filed: 08/01/24 14:10> [facility] Narrative Medical decision making narrative: History gathered from: Patient and spouse Differential includes but not limited to ACS, GERD, esophageal spasm, musculoskeletal Patient presents with episodes of chest tightness that occurred last night and this morning. He appears well and nontoxic. Vital signs stable. Overall his exam is unremarkable. EKG is normal sinus rhythm with PVCs. No acute ischemic changes. Initial troponin is 23. Delta was ordered. CXR shows no acute process. Patient's heart score is 5 and I feel at his age he should be admitted and evaluated for cardiac workup. Case was discussed with the hospitalist for admission. I have personally performed a face to face assessment of the patient and have reviewed the BLAKE Note. I performed a substantive portion of the visit including all aspects of the following. My aguilera findings include: History is [patient presents with chest discomfort that started last evening. He describes a pressure in the center of his chest that lasted about 3 or 4 hours last evening. He was able to sleep okay throughout the night and felt well this morning when he woke up. He went out to do some of his chores and when he came back he had more chest tightness and he took aspirin. There is no radiation of the pain. He denies nausea or vomiting. He has not had discomfort like this before. He has been belching. He denies abdominal pain.] Exam is [HEENT-PERRLA, EOMI. Cranial nerves II through XII grossly intact. TMs clear. Mucous membranes moist. No adenopathy. Cardiovascular-regular rate and rhythm without murmur or ectopy Lungs-clear to auscultation, chest wall stable without crepitus or subcu emphysema Abdomen-normoactive bowel sounds, soft, nontender, no rebound or rigidity, no peritoneal signs. Extremities-intact ?4, normal range of motion, normal pulses, atraumatic] Medical Decison Making [patient with chest pressure. In the differential would be acute coronary syndrome versus GI cause such as GERD or esophageal spasm. Less likely PE. IV line established. EKG obtained arrival showed a sinus rhythm with ventricular rate of 69 bpm with frequent PVCs. CBC with differential showed a white count of 8.7 with hemoglobin 15 and platelet count of 290. Chemistries unremarkable. Troponin was 23. Chest x-ray unremarkable. This point etiology of chest discomfort unclear. His heart score is a 5. Recommended admission for stress testing and cardiac rule out.] Other additions or changes: [None] Lab Data Labs: Laboratory Results - last 24 hr 08/01/24 12:36 WBC 8.7 RBC 4.80 Hgb 15.0 Hct 43.9 MCV 91.5 MCH 31.3 MCHC 34.2 RDW Std Deviation 44.9 H RDW Coeff of Blas 13.2 Plt Count 290 MPV 10.5 Immature Gran % (Auto) 0.200 Neut % (Auto) 57.7 Lymph % (Auto) 28.8 [place] % (Auto) 9.1 Eos % (Auto) 3.2 Baso % (Auto) 1.0 Absolute Neuts (auto) 5.0 Absolute Lymphs (auto) 2.51 Nucleated RBC % 0 Sodium 138 Potassium 3.3 L Chloride 105 Carbon Dioxide 27.0 Anion Gap 6 BUN 19 H Creatinine 0.88 Estim Creat Clear Calc 70.28 Est GFR (MDRD) Af Amer 108 Est GFR (MDRD) Non-Af 89 BUN/Creatinine Ratio 21.7 H Glucose 147 H Calcium 9.4 Troponin I High Sens 23 Radiography Diagnostic Testing: Clinical Impression(s) from Imaging Studies Chest X-Ray 08/01/24 13:00 IMPRESSION: Hyperinflation. No acute abnormality is seen. Electronically Signed: Jeancarlos Estrada MD at 13:29 EST , EKG Initial EKG: Attestation: I personally reviewed and interpreted this EKG as follows: Interpretation: Sinus Rhythm and No Acute Injury Pattern Comments: Sinus rhythm at 69 bpm with frequent PVCs Normal intervals, no acute ischemic changes <Dr. Toney Roland, DO - Last Filed: 08/01/24 13:20> [facility] Narrative Medical decision making narrative: I have personally performed a face to face assessment of the patient and have reviewed the BLAKE Note. I performed a substantive portion of the visit including all aspects of the following. My aguilera findings include: History is [patient presents with chest discomfort that started last evening. He describes a pressure in the center of his chest that lasted about 3 or 4 hours last evening. He was able to sleep okay throughout the night and felt well this morning when he woke up. He went out to do some of his chores and when he came back he had more chest tightness and he took aspirin. There is no radiation of the pain. He denies nausea or vomiting. He has not had discomfort like this before. He has been belching. He denies abdominal pain.] Exam is [HEENT-PERRLA, EOMI. Cranial nerves II through XII grossly intact. TMs clear. Mucous membranes moist. No adenopathy. Cardiovascular-regular rate and rhythm without murmur or ectopy Lungs-clear to auscultation, chest wall stable without crepitus or subcu emphysema Abdomen-normoactive bowel sounds, soft, nontender, no rebound or rigidity, no peritoneal signs. Extremities-intact ?4, normal range of motion, normal pulses, atraumatic] Medical Decison Making [patient with chest pressure. In the differential would be acute coronary syndrome versus GI cause such as GERD or esophageal spasm. Less likely PE. IV line established. EKG obtained arrival showed a sinus rhythm with ventricular rate of 69 bpm with frequent PVCs. CBC with differential showed a white count of 8.7 with hemoglobin 15 and platelet count of 290. Chemistries unremarkable. Troponin was 23. Chest x-ray unremarkable. This point etiology of chest discomfort unclear. His heart score is a 5. Recommended admission for stress testing and cardiac rule out.] Other additions or changes: [None] Lab Data Attestation: I reviewed the patient's lab results. Labs: Laboratory Results - last 24 hr 08/01/24 12:36 WBC 8.7 RBC 4.80 Hgb 15.0 Hct 43.9 MCV 91.5 MCH 31.3 MCHC 34.2 RDW Std Deviation 44.9 H RDW Coeff of Blas 13.2 Plt Count 290 MPV 10.5 Immature Gran % (Auto) 0.200 Neut % (Auto) 57.7 Lymph % (Auto) 28.8 [place] % (Auto) 9.1 Eos % (Auto) 3.2 Baso % (Auto) 1.0 Absolute Neuts (auto) 5.0 Absolute Lymphs (auto) 2.51 Nucleated RBC % 0 Sodium 138 Potassium 3.3 L Chloride 105 Carbon Dioxide 27.0 Anion Gap 6 BUN 19 H Creatinine 0.88 Estim Creat Clear Calc 70.28 Est GFR (MDRD) Af Amer 108 Est GFR (MDRD) Non-Af 89 BUN/Creatinine Ratio 21.7 H Glucose 147 H Calcium 9.4 Troponin I High Sens 23 Radiography Chest X-Ray - ED: 1 View Diagnostic Testing: Clinical Impression(s) from Imaging Studies Chest X-Ray 08/01/24 13:00 IMPRESSION: Hyperinflation. No acute abnormality is seen. Electronically Signed: Jeancarlos Estrada MD at 13:29 EST , 1 view chest x-ray obtained interpreted by myself as no evidence of infiltrate or pneumothorax or acute disease process. Discharge Plan Triage Chief Complaint: Chest Pain ED Midlevel Provider: Kristie Perry ED Provider: Toney Roland Dx/Rx/DC Orders Clinical Impression: Chest pain Prescriptions: No Action amlodipine 5 mg tablet 5 mg PO DAILY atenolol 50 mg tablet 25 mg PO BID Patient Comments: pt states he only takes once daily in the evening even though instructions are bid Primary Care Provider: Jenifer Zuleta COFFEE SOMMELIER Referrals: Aly Lewis DO [Non-Staff] - Print Language: Afghan
[2024-08-01] MEDS: Aspirin 81 MG TAB.CHEW 324 MG PO (12:51)
[2024-08-01 12:54] LABS: Absolute Lymphocyte Count 2.51 X10^3/uL (0.83-4.51); Basophil# 0.09 X10^3/uL; Eosinophil# 0.28 X10^3/uL; Eosinophils% 3.2 % (0-5); Hematocrit 43.9 % (40-54); Lymphocyte # 2.51 X10^3/ul (0.83-4.51); Lymphocyte % 28.8 % (19-41); Mean Corp Hgb Conc 34.2 g/dL (32-36); Mean Corpuscular Hgb 31.3 pg (27.0-32.0); Mean Corpuscular Volume 91.5 fL (80-94); Mean Platelet Vol. 10.5 fl (6.2-12.0); Monocyte# 0.79 X10^3/uL; Monocyte% 9.1 % (0-10); NRBC Flagged by Analyzer 0 % (0-5); Neutrophil # 5.02 X10^3/uL (2.7-7.7); Neutrophil % 57.7 % (47-70); Platelet Count 290 K/mm3 (150-450); RBC Distribution Width CV 13.2 % (11.6-14.6); RBC Distribution Width SD 44.9 fl (35.1-43.9); White Blood Count 8.7 K/mm3 (4.4-11.0)
--- NOTE | 2024-08-01 13:00 | RAD_ITS ---
STUDY: X-RAY CHEST REASON FOR EXAM: Male, 79 years old. Chest pain TECHNIQUE: PA and lateral views of the chest. COMPARISON: Comparison is made with prior study dated July 27, 2020. FINDINGS: EKG electrodes are seen. There is hyperinflation of the lungs consistent with chronic obstructive lung disease (COPD). There is no demonstrated pleural abnormality. Normal size heart. Normal mediastinum and britt. Normal visualized pulmonary arteries. There is atherosclerotic calcification of the aortic arch with tortuosity. There are degenerative changes of the visualized thoracic spine. Normal visualized ribs, clavicles, and shoulders. There is no demonstrated abnormality of the visualized soft tissue structures of the upper abdomen. RAD/Chest PA and Lateral IMPRESSION: Hyperinflation. No acute abnormality is seen. Electronically Signed: Jeancarlos Estrada MD at 13:29 EST ,
[2024-08-01 13:15] LABS: Anion Gap 6 (5-15); BUN 19 mg/dL (7-18); BUN/Creat Ratio 21.7 RATIO (10-20); Calcium,Total 9.4 mg/dL (8.5-10.1); Chloride 105 mmol/L (98-107); Creatinine, Serum 0.88 mg/dL (0.70-1.30); EST Glomerular Filtration Rate 89 mL/min (>60); Est Glom Filt Rate - Afr Amer 108 mL/min (>60); Estimated Creatinine Clearance 70.28 ml/min; Glucose 147 mg/dL (74-106); Potassium 3.3 mmol/L (3.5-5.1); Sodium Level 138 mmol/L (136-145); Troponin-I HS (w/2H Reflex) 23 pg/mL (3.0-78.0)
[2024-08-01 14:51] LABS: Reflex Troponin-HS? (from REC) Y
[2024-08-01 15:32] LABS: Troponin-I HS 24 pg/mL (3.0-78.0)
--- NOTE | 2024-08-01 15:37 | EKG12_ITS ---
Test Reason : PREOP Blood Pressure : */* mmHG Vent. Rate : 52 BPM Atrial Rate : 52 BPM P-R Int : 216 ms QRS Dur : 96 ms QT Int : 446 ms P-R-T Axes : 67 44 47 degrees QTcB Int : 414 ms Sinus bradycardia with 1st degree A-V block Otherwise normal ECG When compared with ECG of 01-Aug-2024 19:57, MANUAL COMPARISON REQUIRED DATA IS UNCONFIRMED Confirmed by Demetrius Yañez ([id number]), advertising editor ARY DIETZ ([id number]) on 08/02/2024 1:05:49 PM Referred By: Confirmed By: Demetrius Yañez
--- NOTE | 2024-08-01 15:57 | PCM.HP.STD ---
HPI - General General Date of Admission: 08/01/24 Date of Service: 08/01/24 Chief Complaint: Chest pain HPI Narrative DARRELL HERNANDEZ, is a 79 M with hypertension 79-year-old male history of hypertension presented [facility] ED 08/01/2024 with chest pain.? The pain started last evening and he described as chest tightness for 3 to 4 hours and was belching more than usual, he took an aspirin and went to bed and was able to fall asleep.? This morning he was doing light chores and had midsternal chest tightness from 7 to 8 AM and he took another aspirin which seemed to help but he had recurrence of mild chest tightness so he presented to the ED.? Given unclear etiology of his chest pain in addition to his age and heart score hospitalist contacted for admission for chest pain rule out. Patient evaluated at bedside, he reports that yesterday he had a 3 to 4 hours of chest tightness with belching which is unusual for him, it lasted until he went to bed at 930 but then he got up thinking maybe he would live to see the morning so he took an aspirin, ultimately slept well and woke up without pain. Chest pain and belching recurred this a.m. so he attempted to call to get in with her avionics safety inspector as his follows with 1 but it would be over a month so he proceeded to the ED. Reports presently pain-free. Does report that last week he had a head cold with a productive cough but symptoms have all improved significantly and he only has a slight residual cough. No fevers, no changes in bowel or bladder. No other new or acute complaints. [facility] Medical History (Updated 08/01/24 @ 13:28 by YVAN Teresa) Dizziness Hyperlipidemia Hypertension Home Medications ?Medication ?Instructions ?Recorded ?Last Taken ?Type amlodipine 5 mg tablet 5 mg PO DAILY BP 09/03/17 08/01/24 History atenolol 50 mg tablet 25 mg PO BID 08/01/24 07/31/24 History Allergy/AdvReac Type Severity Reaction Status Date / Time No Known Allergies Allergy Verified 08/01/24 12:26 Social History Smoking Status: Never smoker ROS ROS Narrative General: Denies fever/chills HENT: Denies headache, denies stuffy nose, denies sore throat EYES: Denies changes in vision Resp: Has had a little bit of a persistent cough Cardiac: Intermittent chest tightness and belching GI: Denies abdominal pain, denies changes in bowel, denies nausea/vomiting : Denies changes in urination Extremity: Denies swelling MSK: Denies weakness Neuro: Denies any numbness/tingling Heme: Denies any bleeding or bruising Skin: Denies rashes Psychiatric: No complaints voiced Vital Signs Vital Signs Vital Signs: 08/01/24 12:26 08/01/24 12:47 08/01/24 13:25 Temperature 97 F L Temperature Source Temporal Pulse Rate 63 55 L Respiratory Rate 18 19 H Blood Pressure 141/85 H 141/85 H Blood Pressure Mean 103 103 Blood Pressure Source Blood Pressure Position Blood Pressure Location Pulse Ox 95 98 98 Oxygen Delivery Method Room Air Room Air Room Air 08/01/24 14:00 08/01/24 14:10 08/01/24 15:14 Temperature 98.2 F 98.4 F Temperature Source Oral Pulse Rate 58 L 58 L 53 L Respiratory Rate 19 H 19 H 18 Blood Pressure 145/82 H 145/82 H 153/90 H Blood Pressure Mean 103 103 111 Blood Pressure Source Monitor Blood Pressure Position Semi-Fowlers Blood Pressure Location Right Arm Pulse Ox 97 97 92 Oxygen Delivery Method Room Air Room Air Weight Weight: 79.333 kg Body Mass Index (BMI) 25.0 Physical Exam Narrative General: Alert, oriented, no apparent distress HEENT: Atraumatic, normocephalic Eyes: Anicteric, normal conjunctiva, extraocular movements grossly intact Neck: Supple Respiratory: Clear to auscultation bilaterally, normal respiratory effort Cardiovascular: Regular rate and rhythm GI: Soft, nontender, nondistended Extremities: No edema Musculoskeletal: Moving all extremities Neuro: No overt focal neurological deficits Skin: No rashes appreciated Psych: Cooperative Results Lab / Micro Data 08/01/24 12:36 08/01/24 12:36 Labs: Laboratory Results - last 24 hr 08/01/24 12:36: WBC 8.7, RBC 4.80, Hgb 15.0, Hct 43.9, MCV 91.5, MCH 31.3, MCHC 34.2, RDW Std Deviation 44.9 H, RDW Coeff of Blas 13.2, Plt Count 290, MPV 10.5, Immature Gran % (Auto) 0.200, Neut % (Auto) 57.7, Lymph % (Auto) 28.8, [place] % (Auto) 9.1, Eos % (Auto) 3.2, Baso % (Auto) 1.0, Absolute Neuts (auto) 5.0, Absolute Lymphs (auto) 2.51, Nucleated RBC % 0, Sodium 138, Potassium 3.3 L, Chloride 105, Carbon Dioxide 27.0, Anion Gap 6, BUN 19 H, Creatinine 0.88, Estim Creat Clear Calc 70.28, Est GFR (MDRD) Af Amer 108, Est GFR (MDRD) Non-Af 89, BUN/Creatinine Ratio 21.7 H, Glucose 147 H, Calcium 9.4, Troponin I High Sens 23 08/01/24 15:05: Troponin I High Sens 24 Imaging Radiology Impression Chest X-Ray 08/01/24 13:00 IMPRESSION: Hyperinflation. No acute abnormality is seen. Electronically Signed: Jeancarlos Estrada MD at 13:29 EST Reading Location ID and State: [address] [place] [address] , Service support , Assessment & Plan Assessment/Plan (1) Chest pain: PLAN: Plan #Chest pain -EKG showed normal sinus rhythm with rate of 69 and frequent PVCs -Trop initially 23 with repeat of 24 and chest pain presently resolved -Heart score 4 so given moderate risk is reasonable to admit for chest pain rule out -Admit to telemetry -Echo ordered -Aspirin -Statin -Lipid panel in AM -Stress test ordered for AM #Hypokalemia -Replace -Repeat in the AM #Hypertension -Continue home medications with holding parameters for atenolol given heart rate is in the mid 50s #Recent URI -Symptoms significantly improved and are mostly resolved -Patient was mid 90s with O2 sat in the ED but had no abnormal findings on exam -If any further downtrending of oxygen or hypoxic episodes benefit from further workup however patient presently not having any complaints or symptoms and chest x-ray without acute abnormality #DVT ppx: Lovenox subcu Aida Felton MD Time spent in the patient's overall evaluation,decision-making process, review of diagnostic data, adjustment of management, discussion with other providers, nursing nursing and ancillary staff involved in patient's care documentation, 56 Minutes Charges/Coding Visit Charges Inpatient E&M: 29467 Init Hosp L2
--- NOTE | 2024-08-01 16:36 | ECHOD_ITS ---
Reason For Study: Chest Pain Procedure This was a 2D Doppler, Color Flow transthoracic echocardiogram. Exam performed in department. Left Ventricle Normal LV size. Mild concentric left ventricular hypertrophy. The left ventricular ejection fraction is 65 %. Diastolic function is indeterminate. Right Ventricle Normal right ventricle. Atria The left atrium is mildly enlarged. Normal right atrium. Mitral Valve Mild (1+) mitral valve insufficiency. Tricuspid Valve Trivial tricuspid valve insufficiency. Normal pulmonary artery pressure. Aortic Valve Mild diffuse aortic valve calcification. Mild aortic stenosis. Pulmonic Valve The pulmonic valve is not well visualized. Great Vessels Mildly dilated aortic root. Pericardium/Pleural No pericardial effusion. MMode/2D Measurements & Calculations LVIDd: 4.9 cm IVSd: 1.4 cm Ao root diam: 3.8 cm LVIDs: 3.3 cm LVPWd: 1.2 cm RVDd: 3.9 cm FS: 33.9 % LAV(MOD-bp): 65.2 ml LVAd ap4: 30.6 cm2 SV(MOD-sp4): 59.3 ml LAV(MOD-bp) Indexed: 33.1 ml/m2 LVLd ap4: 8.0 cm SI(MOD-sp4): 30.1 ml/m2 LAV(MOD-sp2): 60.4 ml EDV(MOD-sp4): 96.8 ml LAV(MOD-sp4): 62.7 ml EDV(sp4-el): 99.6 ml LVAs ap4: 16.8 cm2 LVLs ap4: 6.8 cm ESV(MOD-sp4): 37.6 ml ESV(sp4-el): 35.0 ml EF(MOD-sp4): 61.2 % EF(sp4-el): 64.8 % SV(sp4-el): 64.6 ml LA A4 area: 21.2 cm2 LA dimension(2D): 4.4 cm RA A4 area: 19.1 cm2 TAPSE: 2.1 cm Time Measurements MV dec time: 0.30 sec Doppler Measurements & Calculations MV E max errol: 66.3 cm/sec Lat Peak E' Errol: 7.6 cm/sec Med Peak E' Errol: 5.1 cm/sec MV A max errol: 94.1 cm/sec E/E' lat: 8.7 E/E' med: 13.0 MV E/A: 0.70 MV V2 max: 101.0 cm/sec MV P1/2t max errol: 76.5 cm/sec Ao V2 max: 168.7 cm/sec MV max P.1 mmHg MV P1/2t: 105.5 msec Ao max P.4 mmHg MV V2 mean: 47.3 cm/sec MV mean P.1 mmHg MV dec slope: 212.5 cm/sec2 MV V2 VTI: 37.2 cm MVA(P1/2t): 2.1 cm2 LV V1 max: 92.4 cm/sec MR max errol: 456.8 cm/sec PA V2 max: 78.6 cm/sec LV V1 max P.4 mmHg MR max P.5 mmHg TR max errol: 173.2 cm/sec TR max P.0 mmHg ECHO/Echo Complete Interpretation Summary Mild concentric left ventricular hypertrophy. The left ventricular ejection fraction is 65 %. Diastolic function is indeterminate. The left atrium is mildly enlarged. Mild (1+) mitral valve insufficiency. Mildly calcified aortic valve. Mild aortic valve stenosis with trivial regurgit ation. Mildly dilated aortic root. Ordering Physician: Aida Felton Performed By: Peter Nickerson RCS
[2024-08-01] MEDS: Potassium Chloride Oral Tablet 20 MEQ 40 MEQ PO (17:25)
--- NOTE | 2024-08-01 19:57 | EKG12_ITS ---
Test Reason : CP Blood Pressure : */* mmHG Vent. Rate : 64 BPM Atrial Rate : 64 BPM P-R Int : 196 ms QRS Dur : 98 ms QT Int : 412 ms P-R-T Axes : 68 35 50 degrees QTcB Int : 425 ms Normal sinus rhythm Normal ECG When compared with ECG of 01-Aug-2024 15:30, MANUAL COMPARISON REQUIRED DATA IS UNCONFIRMED Confirmed by Demetrius Yañez ([id number]), editor dictionary ARY DIETZ ([id number]) on 08/02/2024 1:07:26 PM Referred By: ALEXANDRE Confirmed By: Demetrius Yañez
[2024-08-01] MEDS: Nitroglycerin (INPATIENT USE) 0.4 MG TAB.SUBL SL (20:50)
[2024-08-01] MEDS: Atorvastatin Calcium 40 MG Tablet PO (21:02)
[2024-08-01] MEDS: Atenolol 25 MG Tablet PO (21:02)
[2024-08-01 21:05] LABS: Troponin-I HS 23 pg/mL (3.0-78.0)
[2024-08-02 04:00] VITALS: BP 146/88; PULSE 66; RESP 16; TEMP 36.8; O2SAT 92
--- NOTE | 2024-08-02 05:55 | EKG12_ITS ---
Test Reason : Blood Pressure : */* mmHG Vent. Rate : 55 BPM Atrial Rate : 55 BPM P-R Int : 202 ms QRS Dur : 102 ms QT Int : 430 ms P-R-T Axes : 73 44 61 degrees QTcB Int : 411 ms Sinus bradycardia Otherwise normal ECG When compared with ECG of 01-Aug-2024 12:33, MANUAL COMPARISON REQUIRED DATA IS UNCONFIRMED Confirmed by Demetrius Yañez ([id number]), rewrite editor ARY DIETZ ([id number]) on 08/02/2024 1:07:35 PM Referred By: Confirmed By: Demetrius Yañez
[2024-08-02] MEDS: Aspirin E.C. 81 MG Tablet PO (06:08)
[2024-08-02 06:14] LABS: Absolute Lymphocyte Count 1.49 X10^3/uL (0.83-4.51); Absolute Neutrophil Count 3.9 X10^3/uL (2.0-7.7); Basophil# 0.09 X10^3/uL; Basophil% 1.4 % (0-1); Eosinophil# 0.32 X10^3/uL; Hematocrit 44.2 % (40-54); Hemoglobin 14.7 g/dL (13.0-16.5); Lymphocyte # 1.49 X10^3/ul (0.83-4.51); Lymphocyte % 23.5 % (19-41); Mean Corp Hgb Conc 33.3 g/dL (32-36); Mean Corpuscular Hgb 30.4 pg (27.0-32.0); Mean Corpuscular Volume 91.3 fL (80-94); Mean Platelet Vol. 10.9 fl (6.2-12.0); Monocyte# 0.56 X10^3/uL; Monocyte% 8.8 % (0-10); NRBC Flagged by Analyzer 0 % (0-5); Neutrophil # 3.87 X10^3/uL (2.7-7.7); Neutrophil % 61.1 % (47-70); Platelet Count 278 K/mm3 (150-450); RBC Distribution Width CV 13.3 % (11.6-14.6); RBC Distribution Width SD 45.2 fl (35.1-43.9); Red Blood Count 4.84 M/mm3 (4.6-6.2); White Blood Count 6.3 K/mm3 (4.4-11.0)
[2024-08-02 06:45] LABS: Anion Gap 5 (5-15); BUN 21 mg/dL (7-18); BUN/Creat Ratio 26.9 RATIO (10-20); Calcium,Total 8.9 mg/dL (8.5-10.1); Chloride 108 mmol/L (98-107); Cholesterol 233 mg/dL (200); Creatinine, Serum 0.78 mg/dL (0.70-1.30); EST Glomerular Filtration Rate 102 mL/min (>60); Est Glom Filt Rate - Afr Amer 123 mL/min (>60); Estimated Creatinine Clearance 77.31 ml/min; Glucose 178 mg/dL (74-106); High Density Lipoprotein 43 mg/dL; Sodium Level 138 mmol/L (136-145); Triglycerides 93 mg/dL; Very Low Density Lipoprotein 19 mg/dL (5-40)
[2024-08-02 07:07] LABS: International Normalized Ratio 1.1; Prothrombin Time (Protime)PT. 13.9 SECONDS (11.7-14.9)
[2024-08-02] MEDS: amLODIPine 5 MG Tablet PO (07:35)
[2024-08-02 08:27] VITALS: BP 121/66; PULSE 54; RESP 16; TEMP 36.4; O2SAT 92
--- NOTE | 2024-08-02 12:42 | STRESSREP_ITS ---
Stress Test Report Date: 08/02/2024 Procedure: Exercise tolerance test/imaging study Indications: Chest pain Consent: Per the patient Procedure: The patient exercised on a Bob protocol for 6 minutes achieving a peak heart rate of 125 bpm (88% predicted maximal heart rate) with a peak blood pressure 162/68 mmHg and a peak MET capacity of 7.0 METs. The baseline ECG demonstrated sinus rhythm. The peak exercise ECG demonstrated sinus tachycardia with no ischemic changes. Frequent PVCs noted in recovery. The functional capacity was considered very good for age. There was no complaint of chest discomfort during exercise or recovery. The examination was discontinued secondary to target heart rate being achieved. The patient was injected with 9.5 mCi of technetium 99m Cardiolite and subsequently rest SPECT Cardiolite nuclear imaging was obtained in the horizontal long, vertical long, and short axis views. Post-exercise, the patient was injected with 31.0 mCi of technetium 99m Cardiolite and subsequently stress SPECT Cardiolite nuclear imaging was obtained in the horizontal long, vertical long, and short axis views. A gated Cardiolite study at peak stress was obtained. Rest and stress SPECT Cardiolite nuclear imaging status post realignment, normalization, and attenuation correction, demonstrates the appearance of relative uniform tracer uptake and myocardial perfusion appearing within normal limits. There is end systolic thickening and brightening. The gated Cardiolite study demonstrates myocardial thickening and inward wall motion. The reported LVEF is 64%. Impression: 1. Technically adequate (percent predicted maximal heart rate greater than 85%) exercise tolerance test 2. Peak exercise ECG with no ischemic changes. No chest pain reported with exercise. 3. Frequent PVCs noted in recovery including a couplet 4. Rest and stress SPECT Cardiolite nuclear imaging demonstrate relative uniform tracer uptake and myocardial perfusion appearing within normal limits. 5. The gated Cardiolite study reports an LVEF of 64%. This note was generated with [employer] software. It may contain incorrect words, spelling, and punctuation that were not noted in checking the note before signing.
[2024-08-02 14:36] VITALS: BP 150/84; PULSE 52; RESP 16; TEMP 36.4; O2SAT 93
--- NOTE | 2024-08-02 15:04 | PCM.DC ---
Discharge Instructions Diet Discharge Diet: No restrictions Activity Discharge Activity: No Restrictions Follow Up Care Test Results: Test results from this visit will be discussed in further detail at your follow-up appointment, if applicable. Discharge Plan Admission Admit Date/Time: 08/01/24 15:57 Primary Reason for Your Visit: Chest pain Attending Provider: Jori Lindsay Primary Care Provider: Jenifer Zuleta NP Consulting Providers: Aida Felton Instructions Additional Instructions / Restrictions: Please start taking Zetia once daily for your high cholesterol. Please consider taking Protonix [id number] for acid reflux. Follow-up with your primary care doctor as needed. Discharge Orders/Prescriptions Prescriptions: New ezetimibe [Zetia] 10 mg tablet 10 mg PO DAILY Qty: 30 2RF Continued amlodipine 5 mg tablet 5 mg PO DAILY atenolol 50 mg tablet 25 mg PO BID Patient Comments: pt states he only takes once daily in the evening even though instructions are bid Referrals / Follow Up: Aly Lewis, [Non-Staff] - Jenifer Zuleta NP, HOME IMPROVEMENT INSTALLER-C [Primary Care Provider] - Disposition Disposition (needs filled in before D/C Order can be placed): Home, Self Care
--- NOTE | 2024-08-02 15:07 | PCM.DC.SUM ---
Providers Date of Admission: 08/01/24 Date of Discharge: 08/02/24 Primary Care Physician: Jenifer Zuleta, CARLEEC Reason For Visit: CHEST PAIN Diagnosis Discharge Diagnosis (1) Chest pain: Status: Acute Code(s): R07.9 - Chest pain, unspecified Medications at Discharge Home Medications amlodipine 5 mg tablet 5 mg PO DAILY BP 09/03/17 atenolol 50 mg tablet 25 mg PO BID blood pressure 08/01/24 ezetimibe 10 mg tablet (Zetia) 10 mg PO DAILY #30 tabs 08/02/24 Hospital Course Operations None Procedures EKG, Nuclear stress test, Transthoracic echo and - (Chest x-ray) Summary of Care Provided Minutes Spent on Discharge: 35 Hospital Course: Patient is a 79-year-old male who presented [facility] ED on 08/01/2024 with chest pain. Short hospital course as noted below. Patient discharged home in stable condition on 08/02. 1. Chest pain ? Presented with intermittent chest discomfort with belching for about 1 day. EKG showed normal sinus rhythm with frequent PVCs, no ischemic changes. Troponin trend 23 > 24. TTE showed EF 65%, mild concentric LV hypertrophy, mildly enlarged LA, mild aortic stenosis, no other concerning findings. Exercise stress test with no concerning findings and patient had no pain with exercise. Lipid panel did show total cholesterol 233, LDL 171, HDL 43. No other significant lab abnormalities. Cardiac etiology ruled out but strongly recommended patient begin statin medication on discharge. 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 He was willing to start Zetia and a prescription was sent for this. Okay to continue home amlodipine and atenolol on discharge. Patient does report intermittent acid reflux symptoms and I recommended that he take an [id number] PPI daily going forward and he noted that he would consider this. 2. Hypokalemia ? Potassium 3.3 on admit, improved with repletion. 3. Hyperlipidemia ? Lipid panel findings noted above and patient started on Zetia on discharge given unwillingness to start statin medication. 4. Hypertension ? Stable during hospitalization, okay to continue home amlodipine and atenolol. 5. Recent URI ? Had symptoms for a few days within the week leading up to admission. Chest x-ray on admit unremarkable. Patient satting in mid to high 90s on room air during hospitalization. URI symptoms resolved by time of hospitalization. No further needs at this time. Total clinical time spent by myself addressing the patient's medical issues, reviewing all the data, and collaborating with patient's care team: 35 minutes. Physical Exam Const alert, oriented x3, no apparent distress and average body habitus Constitutional Narrative: Pleasant elderly male, sitting up comfortably in bed, conversing normally, in no acute distress. General Appearance: cooperative and comfortable HEENT normocephalic, head/scalp atraumatic, hearing grossly normal bilaterally, nasal mucous membranes and turbinates normal and moist oral mucous membranes Eyes PERRL, EOMs intact bilaterally and conjunctivae normal Neck full ROM Chest inspection of chest normal Resp normal respiratory effort, normal air movement, no use of accessory muscles and clear to auscultation bilaterally Cardio regular rate, regular rhythm, no murmurs and peripheral pulses 2+ throughout GI normal to inspection, nondistended, normoactive bowel sounds, soft to palpation, non-tender and non-distended Back/Spine normal ROM Extremity normal to inspection, full ROM and no pedal edema Skin no rashes or lesions noted Psych mental status grossly normal Weight / BMI Weight Weight: 79.333 kg Body Mass Index (BMI) 25.0 ABG / Lab / Microbiology Data 08/02/24 05:19 08/02/24 05:19 Laboratory: Laboratory Results - last 24 hr 08/01/24 15:05: Troponin I High Sens 08/01/24 20:39: Troponin I High Sens 08/02/24 05:19: WBC 6.3, RBC 4.84, Hgb 14.7, Hct 44.2, MCV 91.3, MCH 30.4, MCHC 33.3, RDW Std Deviation 45.2 H, RDW Coeff of Blas 13.3, Plt Count 278, MPV 10.9, Immature Gran % (Auto) 0.200, Neut % (Auto) 61.1, Lymph % (Auto) 23.5, [place] % (Auto) 8.8, Eos % (Auto) 5.0, Baso % (Auto) 1.4 H, Absolute Neuts (auto) 3.9, Absolute Lymphs (auto) 1.49, Nucleated RBC % 0, PT 13.9, INR 1.1, Sodium 138, Potassium 4.0, Chloride 108 H, Carbon Dioxide 26.0, Anion Gap 5, BUN 21 H, Creatinine 0.78, Estim Creat Clear Calc 77.31, Est GFR (MDRD) Af Amer 123, Est GFR (MDRD) Non-Af 102, BUN/Creatinine Ratio 26.9 H, Glucose 178 H, Calcium 8.9, Magnesium 2.0, Triglycerides 93, Cholesterol 233 H, LDL Cholesterol 171 H, VLDL Cholesterol 19, HDL Cholesterol 43 Radiography Diagnostic Testing: Radiology Impression Echocardiogram 08/01/24 16:36 Interpretation Summary Mild concentric left ventricular hypertrophy. The left ventricular ejection fraction is 65 %. Diastolic function is indeterminate. The left atrium is mildly enlarged. Mild (1+) mitral valve insufficiency. Mildly calcified aortic valve. Mild aortic valve stenosis with trivial regurgitation. Mildly dilated aortic root. Ordering Physician: Aida Felton Performed By: Peter Nickerson RCS D/C Instructions Discharge Diet: No restrictions Meaningful Use Info Meaningful Use Meaningful Use Diagnoses (Choose all that apply): None applicable Ischemic Stroke Statin Dosing Therapy Reference: STATIN DOSE THERAPY REFERENCE: * Patients > 75 years receive moderate or high dose statin therapy. * Patients 75 years or YOUNGER should receive HIGH intensity statin dose unless contraindicated. You will be required to document reason for non-treatment if statin daily dose does not meet guidelines. HIGH DOSE STATIN THERAPY DAILY Atorvastatin > than or = to 40 mg Rosuvastatin > than or = to 20 mg Amlodipine + Atorvastatin > than or = to 2.5/40 mg Ezetimibe + Simvastatin 10/80 mg Simvastatin 80mg Discharge Plan Admission Admit Date/Time: 08/01/24 15:57 Primary Reason for Your Visit: Chest pain Attending Provider: Jori Lindsay Primary Care Provider: Jenifer Zuleta NP Consulting Providers: Aida Felton Instructions Additional Instructions / Restrictions: Please start taking Zetia once daily for your high cholesterol. Please consider taking Protonix [id number] for acid reflux. Follow-up with your primary care doctor as needed. Discharge Orders/Prescriptions Prescriptions: New ezetimibe [Zetia] 10 mg tablet 10 mg PO DAILY Qty: 30 2RF Continued amlodipine 5 mg tablet 5 mg PO DAILY atenolol 50 mg tablet 25 mg PO BID Patient Comments: pt states he only takes once daily in the evening even though instructions are bid Referrals / Follow Up: Aly Lewis DO [Non-Staff] - Jenifer Zuleta CARETAKER, CARETAKER-C [Primary Care Provider] - Disposition Disposition (needs filled in before D/C Order can be placed): Home, Self Care Charges/Coding Visit Charges Inpatient E&M: 25641 Disch Hosp >30min
--- NOTE | 2024-08-02 15:28 | CASEMGMT ---
Patient has order for discharge. RN CM in to discuss needs at discharge, family at bedside. Patient denies needs or help at discharge. Patient and family had no questions or concerns.
--- NOTE | 2024-08-02 15:48 | PHA.DC.MC.R ---
Pharmacy [facility] has performed discharge medication reconciliation and counseling for this patient. 1. EZETIMIBE 10MG PO DAILY The patient's discharge medication list was reviewed for discrepancies and discrepancies were resolved. The patient was counseled on the following discharge medications and changes in medications for homegoing were reviewed. The Reason for Use, instructions for use, and potential side effects were reviewed for all new medications. The patient's questions regarding all of their medications were answered. The patient was able to verbally demonstrate an understanding of their discharge medications. Patient counseled by certified pharmacy technicianJose. Medications at Discharge Home Medications amlodipine 5 mg tablet 5 mg PO DAILY BP 09/03/17 atenolol 50 mg tablet 25 mg PO BID blood pressure 08/01/24 ezetimibe 10 mg tablet (Zetia) 10 mg PO DAILY #30 tabs 08/02/24
[2024-08-02 16:20] VITALS: BP 150/84; PULSE 52; RESP 16; TEMP 36.4; O2SAT 93
== END 2024-08-02 15:06 | disposition home or self-care (01) ==
LOC: ED 13:01 → PCU 08-02 07:16
PROVIDERS: Physician Assistant; Admitting Provider Internal Medicine; Emergency Provider Emergency Medicine; PCP Nurse Practitioner Family; Visit Provider Hospitalist
DX: R07.89 Other chest pain (principal); I10 Essential (primary) hypertension; E78.5 Hyperlipidemia, unspecified; R14.2 Eructation; E87.6 Hypokalemia; I49.3 Ventricular premature depolarization; K21.9 Gastro-esophageal reflux disease without esophagitis; Z79.899 Other long term (current) drug therapy
CPT/HCPCS: 36415; 71046; 78452; 80048; 80061; 83735; 84484; 85025; 85610; 93005; 93017; 93306; 99221; 99284; A9500; A4216; G0378